=== PATIENT | male | born 1950 | race Caucasian/White ===

== ENCOUNTER 2017-07-09 01:52 | Inpatient (IN) | payer OTHER, MEDICARE ==
[~2017-07-09] VITALS: Ht 175.3 cm; Wt 86.8 kg
[~2017-07-09 01:52] MED LIST: ACETAMINOPHEN 325 MG TAB PO PRN; BISACODYL 10 MG SUPP RECTAL PRN; D200CAP PO; GEMF600T PO; LACTULOSE SYRUP 20 GM/30 ML CUP PO PRN; LISI10TA3 PO; MAGNESIUM HYDROXIDE SUSP 30 ML CUP PO PRN; METF500T PO; NALOXONE HCL 0.4 MG/ML AMP IV PUSH PRN; ONDANSETRON HCL 4 MG/2 ML VIAL IVP PRN; SENNOSIDES 8.6 MG TAB PO PRN; SODIUM CHLORIDE 0.9% FLUSH 10 ML FLUSH IV FLUSH PRN; TRAM50TA PO; VITA200C3 PO
[2017-07-09] MEDS ORDERED: GLUCAGON 1 MG/ML VIAL OTHER PRN (05:00)
[2017-07-09] MEDS ORDERED: DEXTROSE 50% IN WATER 50 ML VIAL(D50) IV PUSH PRN (05:00)
--- NOTE | 2017-07-09 05:05 | HHI.HP ---
HPI Service [facility] Primary Care Physician [facility] Admission Diagnosis Diagnoses: (1) Hematemesis/vomiting blood Diagnosis: Principal (2) Essential hypertension Diagnosis: Secondary Chief Complaint: " Throwing up blood." Travel History International Travel<30 Days: No Contact w/Intl Traveler <30 Da: No Traveled to Known Affected Are: No History of Present Illness Mr. Mckeon is 67 years old, with history of hypertension, diabetic neuropathy, of both feet, hepatitis C, and PTSD. Mr. Mckeon reported being well on Sunday (07/07/17). When he awoke on Sunday, he noted discomfort in his stomach. He said that he didn't feel like eating and had a small breakfast which she said was unusual for him. Over the course the day the discomfort continued and lately the day he went to lay down to rest. After proximally 45 minutes, he said he got up to urinate and while standing in front of the toilet he threw up bright red blood. Associated with his vomiting he felt lightheaded," warm on the upper portion of my body", developed a cold clammy sweat, and "I felt like he was going to pass out". It was at this time that he decided to go to [facility] [place] for evaluation of his condition. While there he said he had another episode of emesis with similar symptoms as above. Mr. Mckeon stated that he received medication for nausea (Zofran 4 mg) which" really helped". Review of records also indicates that he received 40 mg Protonix IV. He was subsequently transferred to [facility] for continued care. At time of interview, Mr. Mckeon denied black tarry stools, hematuria, cough, shortness of breath, and chest pain. He stated he has no prior history of hematemesis. Review of Systems Constitutional: COMPLAINS OF: Diaphoretic episodes, Change in appetite Endocrine: DENIES: Polyuria, Polyphagia Eyes: DENIES: Blurred vision, Double Vision Ears, nose, mouth, throat: COMPLAINS OF: Hearing loss (possibly related to his experience in an [employer] in the [employer]. He wears bilateral hearing aids.), DENIES: Hoarseness Respiratory: DENIES: Cough, Shortness of breath Cardiovascular: DENIES: Chest pain, Palpitations, Syncope Gastrointestinal: COMPLAINS OF: Abdominal pain, Nausea, Vomiting, DENIES: Black stools, Bloody stools, Diarrhea Psychiatric: DENIES: Anxiety Except as stated in HPI: all other systems reviewed are Neg Past Family Social History Past Medical History Diabetic neuropathy of both feet. Hypertension Hepatitis C (treated with Harvoni5 years ago) Post traumatic stress disorder Past Surgical History Right rotator cuff repair (4 years ago). No other surgeries reported. Reported Medications Reported Meds & Active Scripts Active Reported Vitamin E 200 Unit Cap 400 Units PO DAILY D3 Super Strength (Cholecalciferol) 2,000 Unit Cap 1,000 Units PO DAILY Tramadol (Tramadol HCl) 50 Mg Tab 50 Mg PO Q8H PRN Metformin (Metformin HCl) 500 Mg Tab 500 Mg PO BIDPC Lisinopril 10 Mg Tab 10 Mg PO DAILY Gemfibrozil 600 Mg Tab 600 Mg PO BIDAC Take 30 minutes prior to breakfast and dinner. Allergies: Coded Allergies: No Known Allergies (Verified Allergy, Severe, 07/08/17) Active Ordered Medications Current Medications Medications (Trade) Dose Ordered Sig/Kristopher Route Start Time Stop Time Status Last Admin (NS Flush) 2 ml UNSCH PRN IV FLUSH 07/09/17 00:30 (NS Flush) 2 ml BID IV FLUSH 07/09/17 09:00 (Tylenol) 650 mg Q4H PRN PO 07/09/17 00:30 (Zofran Inj) 4 mg Q4H PRN IVP 07/09/17 00:30 (Narcan Inj) 0.4 mg UNSCH PRN IV PUSH 07/09/17 00:30 (Aparna-Colace) 1 tab BID PO 07/09/17 09:00 (Milk Of Magnesia Liq) 30 ml Q12H PRN PO 07/09/17 00:30 (Senokot) 17.2 mg Q12H PRN PO 07/09/17 00:30 (Dulcolax Supp) 10 mg DAILY PRN RECTAL 07/09/17 00:30 (Lactulose Liq) 30 ml DAILY PRN PO 07/09/17 00:30 Family History Family history not disclose or reported at this visit. Social History Patient reported distant tobacco use (25-30 years ago). Patient reported distant alcohol use; nothing in the past 25-30 years. Patient denied illicit/recreational drug use. Patient is a [place] combat having served in the [employer] and states that he suspected he was exposed to agent orange. Patient is followed by [facility]. Physical Exam Physical Exam GENERAL: This is a well-nourished, well-developed male, laying in bed, in no apparent distress. SKIN: No rashes, ecchymoses or lesions. Cool and dry. IV noted to be and right forearm. HEAD: Atraumatic. Normocephalic. EYES: Pupils equal round and reactive. Extraocular motions intact. No scleral icterus. No injection or drainage. ENT: Nose without bleeding or purulent drainage. Airway patent. NECK: Trachea midline. No lymphadenopathy. Supple and nontender. CARDIOVASCULAR: Regular rate and rhythm without murmurs, gallops, or rubs. RESPIRATORY: Clear to auscultation. Breath sounds equal bilaterally. No wheezes , rales, or rhonchi. GASTROINTESTINAL: Abdomen soft, non-tender, nondistended. No hepato- splenomegaly or guarding. MUSCULOSKELETAL: Extremities without clubbing, cyanosis, or edema. NEUROLOGICAL: Awake and alert. Cranial nerves II through XII intact. Motor and sensory grossly within normal limits. Five out of 5 muscle strength in all muscle groups. Speech was clear and fluent. Laboratory Laboratory Tests Test 07/08/17 22:21 White Blood Count 14.4 TH/MM3 Red Blood Count 3.74 MIL/MM3 Hemoglobin 12.6 GM/DL Hematocrit 36.0 % Mean Corpuscular Volume 96.3 FL Mean Corpuscular Hemoglobin 33.7 PG Mean Corpuscular Hemoglobin Concent 35.0 % Red Cell Distribution Width 13.8 % Platelet Count 182 TH/MM3 Mean Platelet Volume 10.6 FL Immature Granulocyte % (Auto) 0.6 % Neutrophils (%) (Auto) 72.0 % Lymphocytes (%) (Auto) 16.2 % Monocytes (%) (Auto) 7.9 % Eosinophils (%) (Auto) 2.6 % Basophils (%) (Auto) 0.7 % Immature Granulocyte # (Auto) 0.1 TH/MM3 Neutrophils # (Auto) 10.4 TH/MM3 Lymphocytes # (Auto) 2.3 TH/MM3 Monocytes # (Auto) 1.1 TH/MM3 Eosinophils # (Auto) 0.4 TH/MM3 Basophils # (Auto) 0.1 TH/MM3 CBC Comment DIFF FINAL Differential Comment Prothrombin Time 13.2 SEC Prothromb Time International Ratio 1.3 RATIO Activated Partial Thromboplast Time 27.8 SEC Blood Urea Nitrogen 34 MG/DL Creatinine 0.70 MG/DL Random Glucose 146 MG/DL Total Protein 6.7 GM/DL Albumin 3.4 GM/DL Calcium Level 9.2 MG/DL Alkaline Phosphatase 113 U/L Aspartate Amino Transf (AST/SGOT) 12 U/L Alanine Aminotransferase (ALT/SGPT) 16 U/L Total Bilirubin 1.7 MG/DL Sodium Level 141 MEQ/L Potassium Level 4.4 MEQ/L Chloride Level 109 MEQ/L Carbon Dioxide Level 22.0 MEQ/L Anion Gap 10 MEQ/L Estimat Glomerular Filtration Rate 112 ML/MIN Lactic Acid Level 2.1 mmol/L Lipase 161 U/L Imaging CONCLUSION: 1. Suspected cirrhotic liver with portal hypertension, splenomegaly and extensive varices in the left upper quadrant and around the distal esophagus. 2. Colonic diverticula without inflammatory change. 3. Interstitial disease at the lung bases. 4. Questionable mild thickening of the posterior inferior urinary bladder. 5. Mild umbilical hernia containing mesenteric fat. Caprini VTE Risk Assessment Caprini VTE Risk Assessment: Mod/High Risk (score >= 2) VTE Pharm Contraindication: Active bleeding Caprini Risk Assessment Model Point Value = 1 Point Value = 2 Point Value = 3 Point Value = 5 Age 41-60 Minor surgery BMI > 25 kg/m2 Swollen legs Varicose veins or History of unexplained or recurrent spontaneous Oral contraceptives or hormone replacement Sepsis (< 1 month) Serious lung disease, including pneumonia (< 1 month) Abnormal pulmonary function Acute myocardial infarction Congestive heart failure (< 1 month) History of inflammatory bowel disease Medical patient at bed rest Age 61-74 Arthroscopic surgery Major open surgery (> 45 min) Laparoscopic surgery (> 45 min) Malignancy Confined to bed (> 72 hours) Immobilizing plaster cast Central venous access Age >= 75 History of VTE Family history of VTE Factor V Leiden Prothrombin [id number] Lupus anticoagulant Anticardiolipin antibodies Elevated serum homocysteine Heparin-induced thrombocytopenia Other congenital or acquired thrombophilia Stroke (< 1 month) Elective arthroplasty Hip, pelvis, or leg fracture Acute spinal cord injury (< 1 month) Prophylaxis Regimen Total Risk Factor Score Risk Level Prophylaxis Regimen 0-1 Low Early ambulation 2 Moderate Order ONE of the following: *Sequential Compression Device (SCD) *Heparin 5000 units SQ BID 3-4 Higher Order ONE of the following medications: *Heparin 5000 units SQ TID *Enoxaparin/Lovenox 40 mg SQ daily (WT < 150 kg, CrCl > 30 mL/min) *Enoxaparin/Lovenox 30 mg SQ daily (WT < 150 kg, CrCl > 10-29 mL/min) *Enoxaparin/Lovenox 30 mg SQ BID (WT < 150 kg, CrCl > 30 mL/min) AND/OR *Sequential Compression Device (SCD) 5 or more Highest Order ONE of the following medications: *Heparin 5000 units SQ TID (Preferred with Epidurals) *Enoxaparin/Lovenox 40 mg SQ daily (WT < 150 kg, CrCl > 30 mL/min) *Enoxaparin/Lovenox 30 mg SQ daily (WT < 150 kg, CrCl > 10-29 mL/min) *Enoxaparin/Lovenox 30 mg SQ BID (WT < 150 kg, CrCl > 30 mL/min) AND *Sequential Compression Device (SCD) Assessment and Plan Problem List: (1) Hematemesis/vomiting blood ICD Code: K92.0 - Hematemesis (2) Essential hypertension ICD Code: I10 - Essential (primary) hypertension (3) Diabetes mellitus with neuropathy ICD Code: E11.40 - Type 2 diabetes mellitus with diabetic neuropathy, unspecified Status: Chronic Assessment and Plan Mr. Mckeon is 67 years old, with history of hypertension, diabetic neuropathy, of both feet, hepatitis C, and PTSD. Mr. Mckeon reported being well on Sunday (07/07/17). When he awoke on Sunday, he noted discomfort in his stomach. He said that he didn't feel like eating and had a small breakfast which she said was unusual for him. Over the course the day the discomfort continued and lately the day he went to lay down to rest. After proximally 45 minutes, he said he got up to urinate and while standing in front of the toilet he threw up bright red blood. Associated with his vomiting he felt lightheaded, " warm on the upper portion of my body", developed a cold clammy sweat, and "I felt like he was going to pass out". It was at this time that he decided to go to [facility] [place] for evaluation of his condition. While there he said he had another episode of emesis with similar symptoms as above. Mr. Mckeon stated that he received medication for nausea (Zofran 4 mg) which" really helped ". Review of records also indicates that he received 40 mg Protonix IV. Hematemesis/vomiting blood -Consult GI appreciate recommendations. -Protonix 40 mg IV every 12 hours -Nothing by mouth at present except for medications -Labs in a.m. Diabetes -Hold home metformin -Fingersticks every before meals and at bedtime -Sliding scale insulin (NovoLog low-dose regimen). Hypertension -Lisinopril 10 mg daily DVT prophylaxis -Pharmacotherapy not warranted at this time due to active bleeding. -Ambulation of patient. Diet -Nothing by mouth upon admission. Code Status Full code Discussed Condition With Patient, RN,Dr. Salvador Problem Qualifiers (1) Hematemesis/vomiting blood: Qualified Codes: K92.0 - Hematemesis (2) Diabetes mellitus with neuropathy: Qualified Codes: E11.40 - Type 2 diabetes mellitus with diabetic neuropathy, unspecified Yomi López Jr. Jul 09, 2017 05:05
[2017-07-09 05:10] VITALS: BP 128/58; PULSE 88; RESP 18; TEMP 98.8; O2SAT 94
[2017-07-09 08:02] VITALS: BP 135/74; PULSE 95; RESP 16; TEMP 96.7; O2SAT 93
[2017-07-09] MEDS: INSULIN ASPART SUPPLEMENTAL SCALE SQ SCH ×4 (08:11→21:56)
[2017-07-09] MEDS: LISINOPRIL 10 MG TAB PO SCH (08:12)
[2017-07-09] MEDS: DOCUSATE SODIUM 50 MG/SENNA 8.6 MG TAB PO SCH ×2 (08:13→21:00)
[2017-07-09] MEDS: SODIUM CHLORIDE 0.9% FLUSH 10 ML FLUSH IV FLUSH SCH ×2 (08:13→21:00)
--- NOTE | 2017-07-09 09:40 | HHI.PR ---
Subjective Remarks Follow up for hematemesis. The patient reports feeling slightly better today. No further episodes of nausea/vomiting/hematemesis since he was in [facility]. He states his abdominal pain has subsided, previously with periumbilical discomfort. He had a BM yesterday morning and this morning, described as "blackish brown", which is darker than usual for him. He denies any alcohol use or recent NSAID use. He states he had an EGD a few years ago with Dr. Gomez that was reportedly unremarkable. He also reports feeling lightheaded and flushed upon ambulating and with the bowel movement this morning. He has no other medical complaints at this time. Objective Vitals Vital Signs Date Time Temp Pulse Resp B/P (MAP) Pulse Ox O2 Delivery O2 Flow Rate FiO2 07/09/17 08:02 96.7 95 16 135/74 (94) 93 07/09/17 05:10 98.8 88 18 128/58 (81) 94 Objective Remarks GENERAL: Well-nourished, well-developed pleasant male patient in [facility]. SKIN: Warm and dry. No rash. HEENT: Normocephalic. Atraumatic.Pupils equal and round. Mucous membranes pink and moist. NECK: Supple. Trachea midline. CARDIOVASCULAR: Regular rate and rhythm. S1, S2 noted. No murmur appreciated. RESPIRATORY: No accessory muscle use. Clear to auscultation. Breath sounds equal bilaterally. GASTROINTESTINAL: Abdomen soft, non-tender, nondistended. Normoactive bowel sounds x4. MUSCULOSKELETAL: No obvious deformities. Extremities without clubbing, cyanosis , or edema. NEUROLOGICAL: Awake and alert. No obvious cranial nerve deficits. Motor grossly within normal limits. Normal speech. PSYCHIATRIC: Appropriate mood and affect; insight and judgment normal. Medications and IVs Current Medications Medications (Trade) Dose Ordered Sig/Kristopher Route Start Time Stop Time Status Last Admin (NS Flush) 2 ml UNSCH PRN IV FLUSH 07/09/17 00:30 (NS Flush) 2 ml BID IV FLUSH 07/09/17 09:00 07/09/17 08:13 (Tylenol) 650 mg Q4H PRN PO 07/09/17 00:30 (Zofran Inj) 4 mg Q4H PRN IVP 07/09/17 00:30 (Narcan Inj) 0.4 mg UNSCH PRN IV PUSH 07/09/17 00:30 (Aparna-Colace) 1 tab BID PO 07/09/17 09:00 07/09/17 08:13 (Milk Of Magnesia Liq) 30 ml Q12H PRN PO 07/09/17 00:30 (Senokot) 17.2 mg Q12H PRN PO 07/09/17 00:30 (Dulcolax Supp) 10 mg DAILY PRN RECTAL 07/09/17 00:30 (Lactulose Liq) 30 ml DAILY PRN PO 07/09/17 00:30 (Prinivil) 10 mg DAILY PO 07/09/17 09:00 07/09/17 08:12 (Ultram) 50 mg Q8H PRN PO 07/09/17 05:00 (NovoLOG SUPPLEMENTAL SCALE) 1 ACHS SLIDING SCALE SQ 07/09/17 08:00 (D50w (Vial) Inj) 50 ml UNSCH PRN IV PUSH 07/09/17 05:00 (Glucagon Inj) 1 mg UNSCH PRN OTHER 07/09/17 05:00 A/P Problem List: (1) Hematemesis/vomiting blood ICD Code: K92.0 - Hematemesis (2) Essential hypertension ICD Code: I10 - Essential (primary) hypertension (3) Diabetes mellitus with neuropathy ICD Code: E11.40 - Type 2 diabetes mellitus with diabetic neuropathy, unspecified Status: Chronic Assessment and Plan 67-year-old male with history of HTN, DM, diabetic neuropathy, hepatitis C, PTSD , presents with abdominal pain, hematemesis x1day. Transferred from [facility] ER Hematemesis/Abdominal Pain: upper GI bleeding, suspect variceal bleeding. CT abd /pelvis images reviewed, shows suspected cirrhotic liver with portal hypertension, splenomegaly, extensive varices LUQ and distal esophagus; colonic diverticula without inflammatory changes; mild umbilical hernia containing mesenteric fat -Hgb 12.6, stable, continue to monitor H&H -Continue IV Protonix 40mg bid -Start on prophylactic antibiotics with IV Rocephin -Continue IVF -Keep NPO for now -Consult GI, appreciate recommendations. Diabetes Mellitus -Hold home metformin -Monitor Accu-cheks and cover with SSI Hypertension -Continue patient's Lisinopril 10 mg daily -Monitor BP, adjust antihypertensives as needed DVT prophylaxis: teds/SCDs. Avoid chemoprophylaxis secondary to GI bleeding. Problem Qualifiers (1) Hematemesis/vomiting blood: Qualified Codes: K92.0 - Hematemesis (2) Diabetes mellitus with neuropathy: Qualified Codes: E11.40 - Type 2 diabetes mellitus with diabetic neuropathy, unspecified Leonor Stewart PA-C Jul 09, 2017 9:40 am
[2017-07-09 10:48] LABS: HEMATOCRIT 31.6 % (39.0-51.0)
[2017-07-09 10:49] LABS: REVIEW FLAG FINAL
[2017-07-09] MEDS: SODIUM CHLOR 0.9% 1000 ML INJ 1,000 ML IV SCH (10:53)
[2017-07-09] MEDS: PANTOPRAZOLE SODIUM 40 MG VIAL IV PUSH SCH ×2 (10:54→21:56)
[2017-07-09] MEDS: cefTRIAXone INJ 1,000 MG in SODIUM CHLORIDE 0.9% INJ 100 ML IV SCH (11:01)
--- NOTE | 2017-07-09 11:48 | PD.CONS ---
HPI History of Present Illness This is a 67 year old male who presented to the emergency room for evaluation of hematemesis. He has a history of liver cirrhosis "stage 2" and hepatitis C ( first treated unsuccessfully with Interferon/Ribavirin and then successfully with Harvoni about 5 years ago). He reports that around 5pm yesterday, he started having some nausea. He only took a few bites of his dinner and then went to bed to see if he would feel better. He then woke up around 8pm and vomited a small amount of red blood and clots. He had three episodes of this, with the last episode in the ER last night at the [facility]. He denies any prior episodes of upper GI bleeding. He denies any history of stomach ulcers. He denies the use any current alcohol use (quit drinking about 25-30 years ago). He does not use any NSAIDs or blood thinners. He has occasional mid abdominal cramping that radiates to his LUQ. He denies any diarrhea. He started having melena yesterday when the nausea/vomiting started. He denies any heartburn or reflux. 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 Although nonspecific this may represent a lymph node. This has been stable since the June 2015 exam. He was then Endoscopic Ultrasound (09/23/15) for abnormal US ----> unremarkable EUS. He has a hx of elevated AFP, but he last one in August of 2015 3.6. Colonoscopy (07/22/15)----> Pandiverticulosis, retroflexed views revealed medium internal hemorrhoids, rectal exam revealed external hemorrhoids. EGD (06/27)---> Nodular gastritis with superficial ulcerations in antrum biopsy, short segment Pruitt's NBI scope used- no dysplasia, biopsy no esophageal varices noted, retroflexed views revealed a small hiatal hernia. Pathology revealed mild chronic gastritis with focal erosion, negative for Helicobacter pylori organisms, distal esophagus with benign squamous mucosa with features of reflux esophagitis. (Odilia Borgse) PFSH Past Medical History Diabetic neuropathy of both feet. 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 EGD/Colonoscopy (Odilia Borges) Coded Allergies: No Known Allergies (Verified Allergy, Severe, 07/08/17) Medications Allergies Coded Allergies Type Severity Reaction Last Updated Verified No Known Allergies Allergy Severe 07/08/17 Yes Active Scripts Medications Dose Route/Sig Max Daily Dose Days Date Category Dose Instructions Vitamin E 200 Unit Cap 400 Units PO DAILY 07/08/17 Reported D3 Super Strength (Cholecalciferol) 2,000 Unit Cap 1,000 Units PO DAILY 07/08/17 Reported Tramadol (Tramadol HCl) 50 Mg Tab 50 Mg PO Q8H PRN 07/08/17 Reported Metformin (Metformin HCl) 500 Mg Tab 500 Mg PO BIDPC 07/08/17 Reported Lisinopril 10 Mg Tab 10 Mg PO DAILY 07/08/17 Reported Gemfibrozil 600 Mg Tab 600 Mg PO BIDAC 07/08/17 Reported Take 30 minutes prior to breakfast and dinner. Family History He denies any family hx of liver disease or cancer. He does not know his mother's medical history Social History Past tobacco use ~25-30 years ago Past ETOH abuse ~25-30 years. Patient denied illicit/recreational drug use. (Odilia Borges) Review of Systems Constitutional: COMPLAINS OF: Fatigue, DENIES: Weight loss Respiratory: DENIES: Cough Gastrointestinal: COMPLAINS OF: Nausea, Vomiting, Heartburn, DENIES: Abdominal pain, Black stools, Bloody stools, Constipation, Diarrhea Hematologic/lymphatic: COMPLAINS OF: Bruising Neurologic: DENIES: Headache Psychiatric: DENIES: Confusion (Odilia Borges) GI Exam Vitals I&O Vital Signs Date Time Temp Pulse Resp B/P (MAP) Pulse Ox O2 Delivery O2 Flow Rate FiO2 07/09/17 08:02 96.7 95 16 135/74 (94) 93 07/09/17 05:10 98.8 88 18 128/58 (81) 94 Imaging Allergies Coded Allergies Type Severity Reaction Last Updated Verified No Known Allergies Allergy Severe 07/08/17 Yes Active Scripts Medications Dose Route/Sig Max Daily Dose Days Date Category Dose Instructions Vitamin E 200 Unit Cap 400 Units PO DAILY 07/08/17 Reported D3 Super Strength (Cholecalciferol) 2,000 Unit Cap 1,000 Units PO DAILY 07/08/17 Reported Tramadol (Tramadol HCl) 50 Mg Tab 50 Mg PO Q8H PRN 07/08/17 Reported Metformin (Metformin HCl) 500 Mg Tab 500 Mg PO BIDPC 07/08/17 Reported Lisinopril 10 Mg Tab 10 Mg PO DAILY 07/08/17 Reported Gemfibrozil 600 Mg Tab 600 Mg PO BIDAC 07/08/17 Reported Take 30 minutes prior to breakfast and dinner. Laboratory Test 07/09/17 10:21 Hemoglobin 11.6 GM/DL Hematocrit 31.6 % Physical Examination HEENT: Normocephalic; atraumatic; no jaundice. CHEST: Resp. even/unlabored. CARDIAC: RRR ABDOMEN: Soft, mild LUQ tenderness; no hepatosplenomegaly; bowel sounds are present in all four quadrants. EXTREMITIES: No clubbing, cyanosis, or edema. SKIN: Normal; no rash; no jaundice. SEAT MAKER: No focal deficits; alert and oriented times three. (Odilia Borges) Assessment and Plan Plan ASSESSMENT: - Hematemesis. Pt with hx of liver cirrhosis. No hx of PUD or Upper GIB. Sudden onset of hematemesis with 3 episodes of hematemesis with small amount red blood with blood clots and melena since yesterday. Last episode of hematemesis was last night. HH has remained stable, 12.6/36.0----> 11.6/31.6. Last EGD was (10/21/14)---> Nodular gastritis with superficial ulcerations in antrum biopsy, short segment Pruitt's NBI scope used- no dysplasia, biopsy no esophageal varices noted, retroflexed views revealed a small hiatal hernia. Pathology revealed mild chronic gastritis with focal erosion, negative for Helicobacter pylori organisms, distal esophagus with benign squamous mucosa with features of reflux esophagitis. - Anemia. Mild. EGD in 2014 as above. Had colonoscopy (07/22/15)----> Pandiverticulosis, retroflexed views revealed medium internal hemorrhoids, rectal exam revealed external hemorrhoids. - Liver cirrhosis, mildly elevated LFTs. Remote hx of ETOH use. Hx hepatitis C , s/p tx (unsuccessfully with interferon/ribavirin and then successfully with Harvoni). LFTs stable. - Hx abnormal US with coarsened echotexture with nodularity along the capsule and stable 2.5 cm mass in the region of the raoul hepatis. S/P EUS (09/23/15) ----> unremarkable EUS. Has had elevated AFP at time, but last checked in August of 2015 and this was 3.6. - Abn. U/A, DM, PTSD, HTN, per attending. PLAN: - Plan for EGD with possible band ligation tomorrow - Obtain consents - NPO after MN - Protonix 40mg IV BID - Monitor HH - Transfuse as necessary - AFP level - CBC, CMP, INR in am - Supportive care - Further recommendations to follow based on results of above - Pt seen and examined by Dr. Gomez and myself and this note is written on her behalf (Odilia Borges) Physician Comments seen, examined agree with above (Danielle Gomez MD) Odilia Borges Jul 09, 2017 11:48 Danielle Gomez MD Jul 09, 2017 18:01
[2017-07-09 12:38] VITALS: BP 134/65; PULSE 84; RESP 18; TEMP 96.1; O2SAT 96
[2017-07-09 15:16] VITALS: BP 119/63; PULSE 96; RESP 20; TEMP 95.8; O2SAT 97
[2017-07-09 17:35] LABS: HEMATOCRIT 28.7 % (39.0-51.0); REVIEW FLAG FINAL
[2017-07-09 20:13] VITALS: BP 116/57; PULSE 110; RESP 18; O2SAT 94
[2017-07-09 22:01] LABS: REVIEW FLAG FINAL
[2017-07-10] VITALS (9 sets, daily range): BP systolic 100–133; BP diastolic 51–68; PULSE 91–116; RESP 16–20; TEMP 98–99.2; O2SAT 94–98
[2017-07-10] MEDS ORDERED: CHLORHEXIDINE GLUCONATE 2 % 1 PACK (2 CLOTHS) TOPICAL PRN (01:15)
[2017-07-10] MEDS ORDERED: METOPROLOL TARTRATE 25 MG TAB PO PRN (01:15)
[2017-07-10] MEDS ORDERED: POVIDONE IODINE 5% (ANTISEPSIS KIT) 4 APPLICATIONS EACH NARE PRN (01:15)
[2017-07-10] MEDS ORDERED: LACTATED RINGER'S 1000 ML IV PRN (01:15)
[2017-07-10] MEDS ORDERED: SODIUM CHLORID 0.9% 500 ML IV PRN (01:15)
[2017-07-10] MEDS ORDERED: INSULIN HUMAN REGULAR 1,000 UNITS/10 ML VIAL SQ PRN (01:15)
[2017-07-10 04:22] LABS: AUTOMATED NEUTROPHIL # 14.8 TH/MM3 (1.8-7.7); BASOPHIL # 0.2 TH/MM3 (0-0.2); EOSINOPHIL # 0.3 TH/MM3 (0-0.4); EOSINOPHIL % 1.7 % (0.0-4.0); HEMATOCRIT 25.2 % (39.0-51.0); HEMO FLAGS DIFF FINAL; LYMPH % 12.7 % (9.0-44.0); LYMPHOCYTE # 2.4 TH/MM3 (1.0-4.8); MEAN CELL VOLUME 96.4 FL (80.0-100.0); MEAN CORPUSCULAR HEMOGLOBIN 33.3 PG (27.0-34.0); MEAN CORPUSCULAR HGB CONC 34.5 % (32.0-36.0); MONO % 7.3 % (0.0-8.0); NEUT % 77.3 % (16.0-70.0); PLATELET COUNT 225 TH/MM3 (150-450); RED BLOOD COUNT 2.61 MIL/MM3 (4.50-5.90); RED CELL DISTRIBUTION WIDTH 13.9 % (11.6-17.2); WHITE BLOOD COUNT 19.1 TH/MM3 (4.0-11.0)
[2017-07-10 04:55] LABS: ALT (GPT) 14 U/L (12-78); ANION GAP 9 MEQ/L (5-15); AST (GOT) 8 U/L (15-37); BICARBONATE 23.2 MEQ/L (21.0-32.0); BLOOD UREA NITROGEN 43 MG/DL (7-18); CHLORIDE 109 MEQ/L (98-107); GLOMERULAR FILTRATION RATE 124 ML/MIN (>89); SODIUM (NA) 141 MEQ/L (136-145)
[2017-07-10 04:56] LABS: ALKALINE PHOSPHATASE 87 U/L (45-117)
[2017-07-10] MEDS: SODIUM CHLOR 0.9% 1000 ML INJ 1,000 ML IV SCH ×2 (07:51→16:00)
[2017-07-10] MEDS: INSULIN ASPART SUPPLEMENTAL SCALE SQ SCH ×4 (08:00→21:00)
[2017-07-10] MEDS: SODIUM CHLORIDE 0.9% FLUSH 10 ML FLUSH IV FLUSH SCH ×2 (09:00→20:16)
[2017-07-10] MEDS: DOCUSATE SODIUM 50 MG/SENNA 8.6 MG TAB PO SCH ×2 (09:00→20:15)
--- NOTE | 2017-07-10 10:00 | GIPROC ---
[facility] [address] [facility]. [facility], [address] EGD PROCEDURE REPORT EXAM DATE: 07/10/2017 PATIENT NAME: Marco Mckeon MR #: [id number] BIRTHDATE: 1950 ATTENDING: Danielle Gomez MD ORDER #: [id number] MECHATRONICS TECHNOLOGIST: Robert Willoughby and Danay Lucas STATUS: inpatient INDICATIONS: The patient is a 67 yr old male here for an EGD due to gi bleeding, liver cirrhosis PROCEDURE PERFORMED: EGD w/ biopsy MEDICATIONS: None and Per Anesthesia. TOPICAL ANESTHETIC: none CONSENT: The patient understands the risks and benefits of the procedure and understands that these risks include, but are not limited to: sedation, allergic reaction, infection, perforation and/or bleeding. Alternative means of evaluation and treatment include, among others: physical exam, x-rays, and/or surgical intervention. The patient elects to proceed with this endoscopic procedure. medical equipment was checked for proper function. Hand hygiene and appropriate measures for infection prevention was taken. After the risks, benefits and alternatives of the procedure were thoroughly explained, Informed consent was verified, confirmed and timeout was successfully executed by the treatment team. The patient was anesthetized with topical anesthesia and the Pentax [id number] endoscope was introduced through the mouth and advanced to the second portion of the duodenum. Retroflexed views revealed gastric varices The gastroscope was then slowly withdrawn and removed. Portal gastropathy old blood in stomach no esophagela varices gastric varices with some old blood over ti-most likely cause of bleeding. ADVERSE EVENTS: There were no complications. IMPRESSIONS: 1. Portal gastropathy old blood in stomach no esophagela varices gastric varices with some old blood over ti-most likely cause of bleeding 2. Retroflexed views revealed gastric varices RECOMMENDATIONS: 1. Await biopsy results. Biopsy results will not be ready for 7-10 days. If you don't hear from us in two weeks, call our office for biopsy results. 2. Anti-reflux regimen 3. Resume diet consult IR for possible TIPS referral tertiary center op hepatology clinic start Nadolol upon dc MRV abdomen to r/o splenic vein thrombosis continue monitoring hb /ht EUS op PATIENT CONDITION: stable DISPOSITION: Inpatient REPEAT EXAM: Return 3 months EGD Danielle Gomez MD eSigned: Danielle Gomez MD 07/10/2017 10:00 AM cc: PATIENT NAME: Marco Mckeon MR#: [id number]
[2017-07-10] MEDS: LISINOPRIL 10 MG TAB PO SCH (11:33)
[2017-07-10] MEDS: PANTOPRAZOLE SODIUM 40 MG VIAL IV PUSH SCH ×2 (11:34→20:15)
[2017-07-10] MEDS: cefTRIAXone INJ 1,000 MG in SODIUM CHLORIDE 0.9% INJ 100 ML IV SCH (11:41)
--- NOTE | 2017-07-10 11:47 | HHI.PR ---
Subjective Remarks Follow up for hematemesis. The patient is seen s/p EGD, he is drowsy but oriented x4, is at bedside. The patient reports large episode of black melanotic stool overnight. Denies any nausea/vomiting/hematemesis. Denies any specific abdominal pains but does report abdominal fullness. Denies fevers/ chills. Patient and would like to speak with Dr. Gomez again today if possible. Objective Vitals Vital Signs Date Time Temp Pulse Resp B/P (MAP) Pulse Ox O2 Delivery O2 Flow Rate FiO2 07/10/17 10:39 101 18 135/69 (91) 98 07/10/17 10:21 107 18 120/63 (82) 98 07/10/17 10:14 100 20 112/86 (95) 97 07/10/17 10:02 97.1 95 18 122/61 (81) 95 07/10/17 09:56 97.0 96 16 118/86 (97) 95 07/10/17 08:08 98.9 109 20 125/60 (81) 97 07/10/17 05:18 98.0 116 18 122/65 (84) 95 07/10/17 00:14 98.4 110 18 133/68 (89) 96 07/09/17 20:13 110 18 116/57 (76) 94 07/09/17 15:16 95.8 96 20 119/63 (81) 97 07/09/17 12:38 96.1 84 18 134/65 (88) 96 I/O 07/09/17 07/09/17 07/09/17 07/10/17 07/10/17 07/10/17 07:00 15:00 23:00 07:00 15:00 23:00 Intake Total 400 ml Balance 400 ml Intake Other 400 ml # Voids 3 # Bowel Movements 2 Result Diagram: 07/10/17 04007/10/171 Objective Remarks GENERAL: Well-nourished, well-developed pleasant male patient in [facility]. SKIN: Warm and dry. No rash. HEENT: Normocephalic. Atraumatic.Pupils equal and round. Mucous membranes pink and moist. NECK: Supple. Trachea midline. CARDIOVASCULAR: Regular rate and rhythm. S1, S2 noted. No murmur appreciated. RESPIRATORY: No accessory muscle use. Clear to auscultation. Breath sounds equal bilaterally. GASTROINTESTINAL: Abdomen soft, non-tender, nondistended. Normoactive bowel sounds x4. MUSCULOSKELETAL: No obvious deformities. Extremities without clubbing, cyanosis , or edema. NEUROLOGICAL: Awake and alert. No obvious cranial nerve deficits. Motor grossly within normal limits. Normal speech. PSYCHIATRIC: Appropriate mood and affect; insight and judgment normal. Medications and IVs Current Medications Medications (Trade) Dose Ordered Sig/Kristopher Route Start Time Stop Time Status Last Admin (NS Flush) 2 ml UNSCH PRN IV FLUSH 07/09/17 00:30 (NS Flush) 2 ml BID IV FLUSH 07/09/17 09:00 07/09/17 08:13 (Tylenol) 650 mg Q4H PRN PO 07/09/17 00:30 (Zofran Inj) 4 mg Q4H PRN IVP 07/09/17 00:30 (Narcan Inj) 0.4 mg UNSCH PRN IV PUSH 07/09/17 00:30 (Aparna-Colace) 1 tab BID PO 07/09/17 09:00 07/09/17 08:13 (Milk Of Magnesia Liq) 30 ml Q12H PRN PO 07/09/17 00:30 (Senokot) 17.2 mg Q12H PRN PO 07/09/17 00:30 (Dulcolax Supp) 10 mg DAILY PRN RECTAL 07/09/17 00:30 (Lactulose Liq) 30 ml DAILY PRN PO 07/09/17 00:30 (Prinivil) 10 mg DAILY PO 07/09/17 09:00 07/09/17 08:12 (Ultram) 50 mg Q8H PRN PO 07/09/17 05:00 (NovoLOG SUPPLEMENTAL SCALE) 1 ACHS SLIDING SCALE SQ 07/09/17 08:00 07/09/17 21:56 (D50w (Vial) Inj) 50 ml UNSCH PRN IV PUSH 07/09/17 05:00 (Glucagon Inj) 1 mg UNSCH PRN OTHER 07/09/17 05:00 (Protonix Inj) 40 mg Q12HR IV PUSH 07/09/17 10:30 07/09/17 21:56 Sodium Chloride 1,000 ml @ 100 mls/hr Q10H IV 07/09/17 10:00 07/10/17 07:51 Ceftriaxone Sodium 1000 mg/ Sodium Chloride 100 ml @ 200 mls/hr Q24H IV 07/09/17 11:00 07/09/17 11:01 Lactated Ringer's 1,000 ml @ 30 mls/hr Q24H PRN IV 07/10/17 01:15 12 01:14 07/10/17 08:28 Sodium Chloride 500 ml @ 30 mls/hr [id number] PRN IV 07/10/17 01:15 07/13/17 01:14 (Lopressor) 25 mg CHIEF ORDER DISPATCHER PRN PO 07/10/17 01:15 07/13/17 01:14 (Betadine 5% Antisepsis Kit) 1 applic CHIEF ORDER DISPATCHER PRN EACH NARE 07/10/17 01:15 07/13/17 01:14 (Chlorhexidine 2% Cloth) 3 pack CHIEF ORDER DISPATCHER PRN TOPICAL 07/10/17 01:15 07/13/17 01:14 (NovoLIN R INJ) See Protocol Table ... CHIEF ORDER DISPATCHER PRN SQ 07/10/17 01:15 07/13/17 01:14 A/P Problem List: (1) Hematemesis/vomiting blood ICD Code: K92.0 - Hematemesis (2) Essential hypertension ICD Code: I10 - Essential (primary) hypertension (3) Diabetes mellitus with neuropathy ICD Code: E11.40 - Type 2 diabetes mellitus with diabetic neuropathy, unspecified Status: Chronic Assessment and Plan 67-year-old male with history of HTN, DM, diabetic neuropathy, hepatitis C, PTSD , presents with abdominal pain, hematemesis x1day. Transferred from [facility] ER Hematemesis/Abdominal Pain: upper GI bleeding, suspect variceal bleeding. CT abd /pelvis images reviewed, shows suspected cirrhotic liver with portal hypertension, splenomegaly, extensive varices LUQ and distal esophagus; colonic diverticula without inflammatory changes; mild umbilical hernia containing mesenteric fat -Hgb continues to drop 12.6 --> 11.6 --> 10.3 --> 10.0 --> 8.7, continue to monitor serial H&H q6h -Continue IV Protonix 40mg bid -Continue on prophylactic antibiotics with IV Rocephin -Continue IVF -diet per gastroenterology -Consult GI, appreciate recommendations. -S/p EGD 07/[address] Gomez, showed Portal gastropathy, old blood in stomach , no esophageal varices, gastric varices with some old blood over ti-most likely cause of bleeding -MRV ordered to eval for splenic vein thrombosis -IR consulted to eval for possible TIPS -per GI, needs referral to tertiary center/hepatology clinic -GI also recommends starting Nadolol upon discharge Symptomatic Anemia: Hgb continues to drop, currently Hgb 8.7, decreased from 12.6. Patient now lightheaded. -secondary to GI bleeding as above -continue to monitor H&H, transfuse if Hgb < 8.0 Diabetes Mellitus -Hold home metformin -Monitor Accu-cheks and cover with SSI Hypertension -Continue patient's Lisinopril 10 mg daily -Monitor BP, adjust antihypertensives as needed DVT prophylaxis: teds/SCDs. Avoid chemoprophylaxis secondary to GI bleeding/ Anemia. Problem Qualifiers (1) Hematemesis/vomiting blood: Qualified Codes: K92.0 - Hematemesis (2) Diabetes mellitus with neuropathy: Qualified Codes: E11.40 - Type 2 diabetes mellitus with diabetic neuropathy, unspecified Leonor Stewart PA-C Jul 10, 2017 11:47 am
[2017-07-10] MEDS ORDERED: PROPOFOL 200 MG/20 ML AMP IV ONE (12:00)
[2017-07-10] MEDS ORDERED: LIDOCAINE HCL 1% PF 5 ML SYRINGE OTHER ONE (12:00)
[2017-07-10 12:59] LABS: HEMATOCRIT 23.4 % (39.0-51.0); REVIEW FLAG FINAL
--- NOTE | 2017-07-10 14:45 | RADRPT ---
EXAM DATE/TIME: 07/10/2017 13:24 [facility] COMPARISON: CT ABDOMEN & PELVIS W CONTRAST, July 08, 2017, 23:09. INDICATIONS : Thrombosis. CONTRAST: 30 cc Omniscan (gadodiamide) IV MEDICAL HISTORY : Diabetes mellitus type 2. SURGICAL HISTORY : Cholecystectomy. Rotator cuff, ENCOUNTER: Initial ACUITY: 3 day PAIN SCORE: 3/10 LOCATION: abdomen. TECHNIQUE: Multiplanar, multisequence MRV examination of the abdomen was performed. FINDINGS: The superior mesenteric vein, splenic vein and portal vein are all patent. Within the hepatic parench yma, the portal vein branches are relatively small. The splenic vein is patent throughout. There are massive left gastric varices clustering into the fundus of the stomach and a large caliber spontaneou s spleno renal shunt is present. The spleen is mildly enlarged without focal mass. The liver is mildly cirrhotic in appearance without focal mass or ductal dilatation. The kidneys are grossly unremarkable. CONCLUSION: Splenic vein is patent throughout. There are massive left gastric varices clustering around the fundu s of the stomach and a spontaneous splenorenal shunt is present. Dimas Osorio MD on July 10, 2017 at 14:35 Board Certified Radiologist. This report was verified electronically.
--- NOTE | 2017-07-10 15:10 | EKG ---
Date Performed: 07/10/2017 Time Performed: 08:27:18 PTAGE: 67 years EKG: SINUS TACHYCARDIA NONSPECIFIC ST & T-WAVE ABNORMALITY ABNORMAL RHYTHM ECG NO PREVIOUS TRACING DOCTOR: Mali Bach Interpretating Date/Time 07/10/2017 15:10:03
[2017-07-10] MEDS ORDERED: GADODIAMIDE PF 287 MG/ML 10 ML VIAL (for RAD MRI) IV PUSH ONE (15:21)
[2017-07-10 18:38] LABS: HEMATOCRIT 21.3 % (39.0-51.0)
[2017-07-10 18:41] LABS: REVIEW FLAG FINAL
[2017-07-10] MEDS: traMADol HCL 50 MG TAB PO PRN (20:16)
[2017-07-11 02:32] VITALS: BP 118/65; PULSE 85; RESP 16; TEMP 98; O2SAT 94
[2017-07-11 02:51] VITALS: BP 113/62; PULSE 83; RESP 16; TEMP 98.8; O2SAT 96
[2017-07-11 03:47] VITALS: BP 112/54; PULSE 87; RESP 18; TEMP 99.1; O2SAT 94
[2017-07-11] MEDS: SODIUM CHLOR 0.9% 1000 ML INJ 1,000 ML IV SCH ×3 (06:42→20:27)
[2017-07-11 07:52] VITALS: BP 110/54; PULSE 82; RESP 18; TEMP 99; O2SAT 96
[2017-07-11] MEDS: INSULIN ASPART SUPPLEMENTAL SCALE SQ SCH ×4 (08:00→20:27)
[2017-07-11 08:12] LABS: AUTOMATED NEUTROPHIL # 4.8 TH/MM3 (1.8-7.7); BASOPHIL # 0.1 TH/MM3 (0-0.2); BASOPHIL % 0.9 % (0.0-2.0); EOSINOPHIL # 0.3 TH/MM3 (0-0.4); EOSINOPHIL % 3.7 % (0.0-4.0); HEMATOCRIT 23.8 % (39.0-51.0); LYMPH % 20.5 % (9.0-44.0); LYMPHOCYTE # 1.4 TH/MM3 (1.0-4.8); MEAN CELL VOLUME 91.9 FL (80.0-100.0); MEAN CORPUSCULAR HEMOGLOBIN 32.7 PG (27.0-34.0); MEAN CORPUSCULAR HGB CONC 35.6 % (32.0-36.0); MONO % 7.1 % (0.0-8.0); NEUT % 67.8 % (16.0-70.0); PLATELET COUNT 92 TH/MM3 (150-450); RED BLOOD COUNT 2.59 MIL/MM3 (4.50-5.90); RED CELL DISTRIBUTION WIDTH 16.8 % (11.6-17.2); WHITE BLOOD COUNT 7.1 TH/MM3 (4.0-11.0)
[2017-07-11 08:23] LABS: APTT (PATIENT) 26.1 SEC (24.3-30.1); INTERNATIONAL NORMALIZED RATIO 1.2 RATIO; PROTHROMBIN TIME - PATIENT 12.9 SEC (9.8-11.6)
--- NOTE | 2017-07-11 08:33 | HHI.PR ---
Subjective Remarks Follow up on patient with hematemesis. Patient seen and examined. Patient reports feeling better after receiving 2units PRBCs. He denies any complaints at this time. Denies any dizziness or lightheadedness. Denies any fever or chills. Denies any nausea, vomiting or abdominal pain. Denies any chest pain or dyspnea. He is asking when is procedure will be today. Discussed with Amena VARGAS, no acute issues, TIPS procedure scheduled around 1 today. NPO for now. Objective Vitals Vital Signs Date Time Temp Pulse Resp B/P (MAP) Pulse Ox O2 Delivery O2 Flow Rate FiO2 07/11/17 07:52 99.0 82 18 110/54 (72) 96 07/11/17 03:47 99.1 87 18 112/54 (73) 94 07/11/17 02:51 98.8 83 16 113/62 96 07/11/17 02:32 98.0 85 16 118/65 94 07/10/17 23:54 99.1 94 18 100/51 (67) 95 07/10/17 23:37 99.2 91 16 105/58 95 07/10/17 23:11 99.2 91 18 109/63 94 07/10/17 20:38 99.0 97 20 108/56 (73) 98 07/10/17 16:51 98.2 102 20 117/55 (75) 97 07/10/17 12:05 98.0 105 20 112/56 (74) 98 07/10/17 10:39 101 18 135/69 (91) 98 07/10/17 10:21 107 18 120/63 (82) 98 07/10/17 10:14 100 20 112/86 (95) 97 07/10/17 10:02 97.1 95 18 122/61 (81) 95 07/10/17 09:56 97.0 96 16 118/86 (97) 95 I/O 07/10/17 07/10/17 07/10/17 07/11/17 07/11/17 07/11/17 06:59 14:59 22:59 06:59 14:59 22:59 Intake Total 400 ml 950 ml Balance 400 ml 950 ml Intake Oral 150 ml Packed Cells 800 ml Other 400 ml # Voids 2 Result Diagram: 07/10/17 1800 07/10/17 0401 Imaging Last Impressions Abdominal Mag Res Venography 07/10/17 0000 Signed Impressions: Service Date/Time: Monday, July 10, 2017 13:24 - CONCLUSION: Splenic vein is patent throughout. There are massive left gastric varices clustering around the fundus of the stomach and a spontaneous splenorenal shunt is present. Dimas Osorio MD Objective Remarks GENERAL: Well-nourished, well-developed pleasant male patient in [facility]. Sleeping soundly upon entering room but awakens easily to voice. SKIN: Warm and dry. No rash. HEENT: Normocephalic. Atraumatic. EOMI. Mucous membranes pink and moist. NECK: Supple. Trachea midline. CARDIOVASCULAR: Regular rate and rhythm. S1, S2 noted. No murmur appreciated. RESPIRATORY: Nonlabored. Clear to auscultation. Breath sounds equal bilaterally. GASTROINTESTINAL: Abdomen soft, non-tender, nondistended. Normoactive bowel sounds x4. MUSCULOSKELETAL: No obvious deformities. Extremities without clubbing, cyanosis , or edema. NEUROLOGICAL: Awake and alert. No obvious cranial nerve deficits. Motor grossly within normal limits. Nonfocal. Normal speech. PSYCHIATRIC: Appropriate mood and affect; insight and judgment normal. Medications and IVs Current Medications Medications (Trade) Dose Ordered Sig/Kristopher Route Start Time Stop Time Status Last Admin (NS Flush) 2 ml UNSCH PRN IV FLUSH 07/09/17 00:30 (NS Flush) 2 ml BID IV FLUSH 07/09/17 09:00 07/10/17 20:16 (Tylenol) 650 mg Q4H PRN PO 07/09/17 00:30 (Zofran Inj) 4 mg Q4H PRN IVP 07/09/17 00:30 (Narcan Inj) 0.4 mg UNSCH PRN IV PUSH 07/09/17 00:30 (Aparna-Colace) 1 tab BID PO 07/09/17 09:00 07/10/17 20:15 (Milk Of Magnesia Liq) 30 ml Q12H PRN PO 07/09/17 00:30 (Senokot) 17.2 mg Q12H PRN PO 07/09/17 00:30 (Dulcolax Supp) 10 mg DAILY PRN RECTAL 07/09/17 00:30 (Lactulose Liq) 30 ml DAILY PRN PO 07/09/17 00:30 (Prinivil) 10 mg DAILY PO 07/09/17 09:00 07/10/17 11:33 (Ultram) 50 mg Q8H PRN PO 07/09/17 05:00 07/10/17 20:16 (NovoLOG SUPPLEMENTAL SCALE) 1 ACHS SLIDING SCALE SQ 07/09/17 08:00 07/10/17 12:00 (D50w (Vial) Inj) 50 ml UNSCH PRN IV PUSH 07/09/17 05:00 (Glucagon Inj) 1 mg UNSCH PRN OTHER 07/09/17 05:00 (Protonix Inj) 40 mg Q12HR IV PUSH 07/09/17 10:30 07/10/17 20:15 Sodium Chloride 1,000 ml @ 100 mls/hr Q10H IV 07/09/17 10:00 07/11/17 06:42 Ceftriaxone Sodium 1000 mg/ Sodium Chloride 100 ml @ 200 mls/hr Q24H IV 07/09/17 11:00 07/10/17 11:41 Lactated Ringer's 1,000 ml @ 30 mls/hr Q24H PRN IV 07/10/17 01:15 07/13/17 01:14 07/10/17 08:28 Sodium Chloride 500 ml @ 30 mls/hr [id number] PRN IV 07/10/17 01:15 07/13/17 01:14 (Lopressor) 25 mg SHRIMP TRAWLER CAPTAIN PRN PO 07/10/17 01:15 07/13/17 01:14 (Betadine 5% Antisepsis Kit) 1 applic SHRIMP TRAWLER CAPTAIN PRN EACH NARE 07/10/17 01:15 07/13/17 01:14 (Chlorhexidine 2% Cloth) 3 pack SHRIMP TRAWLER CAPTAIN PRN TOPICAL 07/10/17 01:15 07/13/17 01:14 (NovoLIN R INJ) See Protocol Table ... SHRIMP TRAWLER CAPTAIN PRN SQ 07/10/17 01:15 07/13/17 01:14 A/P Problem List: (1) Hematemesis/vomiting blood ICD Code: K92.0 - Hematemesis (2) Essential hypertension ICD Code: I10 - Essential (primary) hypertension (3) Diabetes mellitus with neuropathy ICD Code: E11.40 - Type 2 diabetes mellitus with diabetic neuropathy, unspecified Status: Chronic Assessment and Plan 67-year-old male with history of HTN, DM, diabetic neuropathy, hepatitis C, PTSD , presents with abdominal pain, hematemesis x1day. Transferred from [facility] ER Hematemesis/Abdominal Pain: upper GI bleeding, suspect variceal bleeding. CT abd /pelvis images reviewed, shows suspected cirrhotic liver with portal hypertension, splenomegaly, extensive varices LUQ and distal esophagus; colonic diverticula without inflammatory changes; mild umbilical hernia containing mesenteric fat -Hgb dropped to 7.7 -Continue IV Protonix 40mg bid -Continue on prophylactic antibiotics with IV Rocephin -Continue IVF -diet per gastroenterology - NPO for now for upcoming TIPS procedure -Consult GI, appreciate recommendations. -S/p EGD 07/[address] Gomez, showed Portal gastropathy, old blood in stomach , no esophageal varices, gastric varices with some old blood over ti-most likely cause of bleeding -MRV ordered to eval for splenic vein thrombosis - Splenic vein is patent throughout. There are massive left gastric varices clustering around the fundus of the stomach and a spontaneous splenorenal shunt is present. -IR consulted to eval for possible TIPS, scheduled at 1pm today -per GI, needs referral to tertiary center/hepatology clinic -GI also recommends starting Nadolol upon discharge Symptomatic Anemia: Hgb continues to drop, currently Hgb 8.7, decreased from 12.6. Patient now lightheaded. -secondary to GI bleeding as above -Hgb dropped to 7.7. S/P 2 units PRBCs -continue to monitor H&H, transfuse if Hgb < 8.0 Diabetes Mellitus -Hold home metformin -Monitor Accu-cheks and cover with SSI - hold ISS for now as patient is NPO Hypertension -hypotensive, improved s/p 2units PRBCs -Continue patient's Lisinopril 10 mg daily -Monitor BP, adjust antihypertensives as needed DVT prophylaxis: teds/SCDs. Avoid chemoprophylaxis secondary to GI bleeding/ Anemia. Discussed with patient, Amena VARGAS and Dr. Kohli Problem Qualifiers (1) Hematemesis/vomiting blood: Qualified Codes: K92.0 - Hematemesis (2) Diabetes mellitus with neuropathy: Qualified Codes: E11.40 - Type 2 diabetes mellitus with diabetic neuropathy, unspecified Erica Umanzor Jul 11, 2017 08:33
[2017-07-11 08:46] LABS: HEMO FLAGS AUTO DIFF
[2017-07-11 08:48] LABS: PLATELET ESTIMATE SMEAR LOW (NORMAL); PLATELET MORPHOLOGY NORMAL (NORMAL); SCAN/DIFF AUTO DIFF CONFIRMED
[2017-07-11 08:49] LABS: BICARBONATE 21.7 MEQ/L (21.0-32.0); POTASSIUM 3.5 MEQ/L (3.5-5.1)
[2017-07-11] MEDS: SODIUM CHLORIDE 0.9% FLUSH 10 ML FLUSH IV FLUSH SCH ×2 (09:00→20:27)
[2017-07-11] MEDS: LISINOPRIL 10 MG TAB PO SCH (09:00)
[2017-07-11] MEDS: PANTOPRAZOLE SODIUM 40 MG VIAL IV PUSH SCH ×2 (11:15→20:25)
[2017-07-11] MEDS: DOCUSATE SODIUM 50 MG/SENNA 8.6 MG TAB PO SCH ×2 (11:15→20:25)
[2017-07-11] MEDS: cefTRIAXone INJ 1,000 MG in SODIUM CHLORIDE 0.9% INJ 100 ML IV SCH (11:20)
[2017-07-11 12:00] VITALS: BP 109/55; PULSE 76; RESP 18; TEMP 98.3; O2SAT 97
[2017-07-11] MEDS ORDERED: IODIXANOL 320 MG/ML 50 ML VIAL (for RAD SPEC) IVCONTRAST ONE (16:24)
--- NOTE | 2017-07-11 16:43 | PD.RAD ---
Post Procedure Progress Note Pre Procedure Diagnosis: (1) Gastric varices (2) Vascular abnormalities of stomach with bleeding (3) Hematemesis/vomiting blood Post Procedure Diagnosis: (1) Hematemesis/vomiting blood (2) Gastric varices (3) Vascular abnormalities of stomach with bleeding Procedure Date: Jul 11, 2017 Supervising Radiologist: Gee Martinez Estimated blood loss: 5CC Plan of Activity Patient to Unit: PACU Patient Condition: Good Additional Comments: 67 Y/O with massive gastric varices and hematemesis. Attempted embolization via the splenorenal shunt. We were unable to access the splenic vein via the splenorenal shunt. Successful percutaneous trans hepatic embolization of the gastric varices. Multiple large varices embolized feeding via the splenic vein. Some varices measured up to 2 cm in size. Multiple embolization coils were used. Pt tolerated the procedure well. Full dictated report pending via PACS. See PACS Report for procedural detail/treatment Gee Martinez MD Jul 11, 2017 16:42
[2017-07-11] MEDS ORDERED: DO NOT ADM ANY ANTICOAGULANT DRUGS PRN (17:15)
--- NOTE | 2017-07-11 17:44 | RADRPT ---
EXAM DATE/TIME: 07/11/2017 14:23 [facility] COMPARISON: CT ABDOMEN & PELVIS W CONTRAST, July 08, 2017, 23:09. INVASIVE RADIOLOGY CONSULT, July 11 017, 0:00. INDICATIONS : Patient with a history of gastric varicies. MEDICAL HISTORY : HTN Diabetes Hep C SURGICAL HISTORY : Cholecystectomy ENCOUNTER: Initial ACUITY: 1 day PAIN SCORE: 2/10 LOCATION: Abdomen FLUORO TIME: 63.44 minutes IMAGE SERIES: 21 ACCESS SITE: Right femoral vein minutes CONTRAST: 1.) 130 cc Visipaque (iodixanol) DEVICE(S): 1.) Left gastric varices embolic coil(s) 15mm x25cm- X2 2.) Left gastric varices embolic coil(s) [id number] 3.) Left gastric varices embolic coil(s) [id number] 4.) Left gastric varices embolic coil(s) [id number]- X2 5.) Left gastric varices embolic coil(s) [id number] 6.) Left gastric varices embolic coil(s) 15x15 myere 7.) Left gastric varices Embolic coil(s) 10x5 tornado-X2 8.) Left gastric varices Embolic coil(s) [id number]- X2 Anesthesia and pain control was provided by the Anesthesia department. PROCEDURE : 1. Ultrasound-guided puncture of the access site. 2. IVC gram.. 3. left renal venogram. 4. Portal venogram. 5. splenic venogram. 6. Embolization of multiple varices arising from the splenic vein. 7. Multiple followup venograms. The patient is a 67-year-old who arrived of the ED department with hematemesis. The patient underwent CT imaging which demonstrated massive gastric varices within the fundus of the stomach. The patient subsequently underwent endoscopy which confirmed bleeding gastric varices. We were requested to evalu ate the patient for a possible TI PS procedure. The patient's CT scan of 07/08/17 was reviewed. The patient has a massive gastric varices and a very large splenorenal shunt. The intrahepatic and proximal extrahepatic portal venous system is quite sma ll in size measuring only approximately 5 mm. As such, it was felt placement of a TIPS Shunt would gordon ve limited durability secondary to its small size. Placement would be quite difficult due to the smal l size of the portal venous system. After thorough review, the decision was made to attempt to emboli ze the patient's varices from a femoral approach and retrograde catheter placement via the splenorena l shunt. If not successful, embolization would be performed via a percutaneous transhepatic approach. The risks, benefits and alternatives to the procedure were explained to the patient and the patient's family. Verbal and written consent was obtained. The site was prepped in sterile fashion. Full st erile technique was used, including cap, mask, sterile gloves and gown and a large sterile sheet. Gordon nd hygiene and 2% chlorhexidine and/or betadine/alcohol prep was utilized per protocol for cutaneous antisepsis. Sterile gel and sterile probe cover were utilized for ultrasound guidance. The skin and subcutaneous tissues were infiltrated with local anesthetic solution. With ultrasound and fluoroscopic guidance the right common femoral vein was accessed. A 4 Samoan hemo static sheath was placed. A 0.035 angled Glidewire and Cobra catheter was advanced through the sheath . The left renal vein was easily selected. The Cobra catheter was removed and a 6 Samoan Ansell one s gloria was advanced into the left renal vein. The patient's large varix arising from the left renal ve in was easily selected. Multiple attempts were made to traverse the varix and into the splenic circul ation using a renegade high flow catheter system. This was unsuccessful. Attention was then directed towards embolization via a transhepatic approach. A suitable site in the midaxillary line was selected. A 22 gauge micropuncture needle was advanced into the liver. A distal portal branch was easily cannulated. A 0.018 wire was advanced into the central portal vein and easil y tracked down into the patient's hepatic vein. A 3/4 combination dilator was advanced over the 0.018 wire. The 0.018 wire was exchanged for a 0.035 angle Glidewire. A 4 Samoan glide catheter was advanc ed into the splenic vein. Multiple angiographic runs were performed. Results: The examination confirmed the patient's massive gastric varices and splenorenal shunt arising from th e mid aspect of the splenic vein. The 4 Samoan sheath was exchanged for a 5 Samoan sheath. A 5 Samoan Marksmin catheter was advanced in to the splenic vein. The origin the more distal varix was selected. The catheter was easily advanced into position. The varix was embolized using multiple detachable embolization coils. Coil sizes are l isted above. Two followup runs were performed confirming significant reduction of flow within the karen ix. The catheter was pulled back. The more proximal varix was selected. Again, this was embolized without difficulty. Followup evaluation demonstrated significant decrease of flow within the varix. A third vessel was identified providing continued blood flow to the patient's gastric varices. This was embol ized as well. Followup evaluation demonstrated near-complete cessation of flow within the patient's varices. It was felt these would eventually completely shut down. Of note, on the followup evaluation the overall si ze and flow within the portal venous system had dramatically increased. The patient remained stable throughout the procedure. CONCLUSION: 1. Successful embolization of multiple gastric varices via a percutaneous, transhepatic approach. Gee Martinez MD on July 11, 2017 at 17:16 Board Certified Radiologist. This report was verified electronically.
[2017-07-11 20:20] VITALS: BP 125/67; PULSE 77; RESP 17; TEMP 98.1; O2SAT 96
[2017-07-11] MEDS: traMADol HCL 50 MG TAB PO PRN (20:25)
[2017-07-11 22:07] LABS: HEMATOCRIT 22.3 % (39.0-51.0)
[2017-07-11 22:12] LABS: REVIEW FLAG FINAL
[2017-07-12 00:10] VITALS: BP 98/53; PULSE 80; RESP 18; TEMP 99.6; O2SAT 95
[2017-07-12 04:08] LABS: HEMATOCRIT 22.1 % (39.0-51.0)
[2017-07-12 04:15] VITALS: BP 93/53; PULSE 83; RESP 19; TEMP 100.1; O2SAT 92
[2017-07-12 04:18] LABS: REVIEW FLAG FINAL
[2017-07-12 07:51] VITALS: BP 104/55; PULSE 85; RESP 18; TEMP 100.4; O2SAT 91
[2017-07-12] MEDS: INSULIN ASPART SUPPLEMENTAL SCALE SQ SCH ×4 (08:00→21:00)
[2017-07-12] MEDS: SODIUM CHLOR 0.9% 1000 ML INJ 1,000 ML IV SCH ×2 (08:00→18:00)
[2017-07-12] MEDS: PANTOPRAZOLE SODIUM 40 MG VIAL IV PUSH SCH ×2 (08:17→19:51)
[2017-07-12] MEDS: LISINOPRIL 10 MG TAB PO SCH (08:18)
[2017-07-12] MEDS: DOCUSATE SODIUM 50 MG/SENNA 8.6 MG TAB PO SCH ×2 (08:18→19:51)
[2017-07-12] MEDS: SODIUM CHLORIDE 0.9% FLUSH 10 ML FLUSH IV FLUSH SCH ×2 (08:23→19:51)
--- NOTE | 2017-07-12 08:44 | HHI.PR ---
Subjective Remarks in no acute distress. denies abdominal pain, nausea, vomiting. no further gross GI bleed. had occasional cough last night which has improved. Objective Vitals Vital Signs Date Time Temp Pulse Resp B/P (MAP) Pulse Ox O2 Delivery O2 Flow Rate FiO2 07/12/17 07:51 100.4 85 18 104/55 (71) 91 07/12/17 04:15 100.1 83 19 93/53 (66) 92 07/12/17 00:10 99.6 80 18 98/53 (68) 95 07/11/17 20:20 98.1 77 17 125/67 (86) 96 07/11/17 18:15 65 16 104/53 (70) 98 Nasal Cannula 2 07/11/17 18:00 65 16 100/51 (67) 96 Nasal Cannula 2 07/11/17 17:45 61 16 98/53 (68) 98 Nasal Cannula 2 07/11/17 17:30 62 16 104/51 (68) 98 Nasal Cannula 2 07/11/17 17:15 64 16 112/58 (76) 98 Nasal Cannula 2 07/11/17 17:00 66 16 115/56 (75) 97 Nasal Cannula 2 07/11/17 16:49 98.2 68 16 119/58 (78) 100 Nasal Cannula 2 07/11/17 12:00 98.3 76 18 109/55 (73) 97 I/O 07/11/17 07/11/17 07/11/17 07/12/17 07/12/17 07/12/17 07:00 15:00 23:00 07:00 15:00 23:00 Intake Total 950 ml 630 ml 360 ml Output Total 0 ml Balance 950 ml 630 ml 360 ml Intake Oral 150 ml 480 ml 360 ml IV Total 150 ml Packed Cells 800 ml Other 0 ml # Voids 2 1 2 # Bowel Movements 0 0 Result Diagram: 07/12/17 0356 07/11/17 0736 Imaging Last Impressions Embolization 07/11/17 0000 Signed Impressions: Service Date/Time: Tuesday, July 11, 2017 14:23 - CONCLUSION: 1. Successful embolization of multiple gastric varices via a percutaneous, transhepatic approach. Gee Martinez MD Abdominal Mag Res Venography 07/10/17 0000 Signed Impressions: Service Date/Time: Monday, July 10, 2017 13:24 - CONCLUSION: Splenic vein is patent throughout. There are massive left gastric varices clustering around the fundus of the stomach and a spontaneous splenorenal shunt is present. Dimas Osorio MD Objective Remarks GENERAL: This is a well-nourished, well-developed patient, in no apparent distress. CARDIOVASCULAR: Regular rate and regular rhythm without murmurs, gallops, or rubs. RESPIRATORY: Clear to auscultation. Breath sounds equal bilaterally. No wheezes , rales, or rhonchi. GASTROINTESTINAL: Abdomen soft, non-tender, nondistended. Normal, active bowel sounds MUSCULOSKELETAL: Extremities without clubbing, cyanosis, or edema. NEURO: Alert & Oriented x4 to person, place, time, situation. Moves all ext x4 Procedures EGD embolization of multiple gastric varices Medications and IVs Current Medications Sodium Chloride (NS Flush) 2 ml UNSCH PRN IV FLUSH FLUSH AFTER USING IV ACCESS ; Start 07/09/17 at 00:30 Sodium Chloride (NS Flush) 2 ml BID IV FLUSH Last administered on 07/12/17 08 :23; Start 07/09/17 at 09:00 Acetaminophen (Tylenol) 650 mg Q4H PRN PO TEMP > 100.4, pain 1-10; Start 07/09 at 00:30 Ondansetron HCl (Zofran Inj) 4 mg Q4H PRN IVP NAUSEA OR VOMITING; Start at 00:30 Naloxone HCl (Narcan Inj) 0.4 mg UNSCH PRN IV PUSH SEE LABEL COMMENTS; Start 07/09/17 at 00:30 Senna/Docusate Sodium (Aparna-Colace) 1 tab BID PO Last administered on 08:18; Start 07/09/17 at 09:00 Magnesium Hydroxide (Milk Of Magnesia Liq) 30 ml Q12H PRN PO Mild constipation ; Start 07/09/17 at 00:30 Sennosides (Senokot) 17.2 mg Q12H PRN PO Moderate constipation; Start at 00:30 Bisacodyl (Dulcolax Supp) 10 mg DAILY PRN RECTAL SEVERE CONSITIPATION; Start 07/09/17 at 00:30 Lactulose (Lactulose Liq) 30 ml DAILY PRN PO SEVERE CONSITIPATION; Start 07/09 at 00:30 Lisinopril (Prinivil) 10 mg DAILY PO Last administered on 07/10/17 11:33; Start 07/09/17 at 09:00 Tramadol HCl (Ultram) 50 mg Q8H PRN PO PAIN Last administered on 07/11/17 20: 25; Start 07/09/17 at 05:00 Insulin Aspart (NovoLOG SUPPLEMENTAL SCALE) 1 ACHS SLIDING SCALE SQ Last administered on 07/10/17 12:00; Start 07/09/17 at 08:00 Dextrose (D50w (Vial) Inj) 50 ml UNSCH PRN IV PUSH HYPOGLYCEMIA-SEE COMMENTS; Start 07/09/17 at 05:00 Glucagon (Glucagon Inj) 1 mg UNSCH PRN OTHER HYPOGLYCEMIA-SEE COMMENTS; Start 07/09/17 at 05:00 Pantoprazole Sodium (Protonix Inj) 40 mg Q12HR IV PUSH Last administered on 08:17; Start 07/09/17 at 10:30 Sodium Chloride 1,000 ml @ 100 mls/hr Q10H IV Last administered on 07/11/17 17:56; Start 07/09/17 at 10:00 Ceftriaxone Sodium 1000 mg/ Sodium Chloride 100 ml @ 200 mls/hr Q24H IV Last administered on 07/11/17 11:20; Start 07/09/17 at 11:00 Lactated Ringer's 1,000 ml @ 30 mls/hr Q24H PRN IV SEE LABEL COMMENTS Last administered on 07/10/17 08:28; Start 07/10/17 at 01:15; Stop 07/13/17 at 01: 14 Sodium Chloride 500 ml @ 30 mls/hr [id number] PRN IV SEE LABEL COMMENTS; Start at 01:15; Stop 07/13/17 at 01:14 Metoprolol Tartrate (Lopressor) 25 mg SLASHER HAND PRN PO SEE LABEL COMMENTS; Start 07/10/17 at 01:15; Stop 07/13/17 at 01:14 Povidone Iodine (Betadine 5% Antisepsis Kit) 1 applic SLASHER HAND PRN EACH NARE SEE LABEL COMMENTS; Start 07/10/17 at 01:15; Stop 07/13/17 at 01:14 Chlorhexidine Gluconate (Chlorhexidine 2% Cloth) 3 pack SLASHER HAND PRN TOPICAL SEE LABEL COMMENTS; Start 07/10/17 at 01:15; Stop 07/13/17 at 01:14 Insulin Human Regular (NovoLIN R INJ) See Protocol Table ... SLASHER HAND PRN SQ SEE PROTOCOL TABLE; Start 07/10/17 at 01:15; Stop 07/13/17 at 01:14 Gadodiamide (Omniscan Pf Inj) 30 ml STK-MED ONCE IV PUSH Last administered on 07/10/17t 15:21; Start 07/10/17 at 15:21; Stop 07/10/17 at 15:22; Status DC Propofol (Diprivan 200 Mg/20 ml Inj) 400 mg STK-MED ONCE IV ; Start 07/10/17 at 12:00; Stop 07/11/17 at 11:18; Status DC Lidocaine HCl (Xylocaine-Mpf 1% Inj) 5 ml STK-MED ONCE OTHER ; Start 07/10/17 at 12:00; Stop 07/11/17 at 11:18; Status DC Iodixanol (VISIPAQUE 320 INJ (Rad Spec)) 130 ml STK-MED ONCE IVCONTRAST Last administered on 07/11/17t 16:24; Start 07/11/17 at 16:24; Stop 07/11/17 at 16 :25; Status DC Miscellaneous Information ALL NURSING DEPARTME... UNSCH PRN .XX SEE LABEL COMMENTS; Start 07/11/17 at 17:15; Stop 07/12/17 at 17:14 A/P Problem List: (1) Hematemesis/vomiting blood ICD Code: K92.0 - Hematemesis (2) Essential hypertension ICD Code: I10 - Essential (primary) hypertension (3) Diabetes mellitus with neuropathy ICD Code: E11.40 - Type 2 diabetes mellitus with diabetic neuropathy, unspecified Status: Chronic Assessment and Plan A/P Hematemesis/Abdominal Pain: upper GI bleeding, suspect variceal bleeding. CT abd/pelvis shows suspected cirrhotic liver with portal hypertension, splenomegaly, extensive varices LUQ and distal esophagus; colonic diverticula without inflammatory changes; mild umbilical hernia containing mesenteric fat MRV ordered to eval for splenic vein thrombosis - Splenic vein is patent throughout. There are massive left gastric varices clustering around the fundus of the stomach and a spontaneous splenorenal shunt is present. -S/p EGD 07/[address] Gomez, showed Portal gastropathy, old blood in stomach , no esophageal varices, gastric varices with some old blood over ti-most likely cause of bleeding - s/p embolization of multiple gastric varices -continue Protonix -Continue on prophylactic antibiotics with IV Rocephin -continue to monitor H/H -Continue IVF -GI following. -per GI, needs referral to tertiary center/hepatology clinic -GI also recommends starting Nadolol upon discharge anemia- due to GI bleed. -secondary to GI bleeding as above - S/P 2 units PRBCs -continue to monitor H&H. Diabetes Mellitus -Hold home metformin -Monitor Accu-cheks and cover with SSI - hold ISS for now as patient is NPO Hypertension -hypotensive, improved s/p 2units PRBCs -hold lisinopril for now. -Monitor BP, adjust antihypertensives as needed DVT prophylaxis: teds/SCDs. Avoid chemoprophylaxis secondary to GI bleeding/ Anemia. Problem Qualifiers (1) Hematemesis/vomiting blood: Qualified Codes: K92.0 - Hematemesis (2) Diabetes mellitus with neuropathy: Qualified Codes: E11.40 - Type 2 diabetes mellitus with diabetic neuropathy, unspecified Charlene Mckeon MD Jul 12, 2017 08:44
--- NOTE | 2017-07-12 10:35 | HHI.GIFU ---
Subjective Remarks resting the bed No further bleeding note abd soft temp. 100.4 (Chandrika Allen) Objective Vitals I&O Vital Signs Date Time Temp Pulse Resp B/P (MAP) Pulse Ox O2 Delivery O2 Flow Rate FiO2 07/12/17 07:51 100.4 85 18 104/55 (71) 91 07/12/17 04:15 100.1 83 19 93/53 (66) 92 07/12/17 00:10 99.6 80 18 98/53 (68) 95 07/11/17 20:20 98.1 77 17 125/67 (86) 96 07/11/17 18:15 65 16 104/53 (70) 98 Nasal Cannula 2 07/11/17 18:00 65 16 100/51 (67) 96 Nasal Cannula 2 07/11/17 17:45 61 16 98/53 (68) 98 Nasal Cannula 2 07/11/17 17:30 62 16 104/51 (68) 98 Nasal Cannula 2 07/11/17 17:15 64 16 112/58 (76) 98 Nasal Cannula 2 07/11/17 17:00 66 16 115/56 (75) 97 Nasal Cannula 2 07/11/17 16:49 98.2 68 16 119/58 (78) 100 Nasal Cannula 2 07/11/17 12:00 98.3 76 18 109/55 (73) 97 I/O 07/11/17 07/11/17 07/11/17 07/12/17 07/12/17 07/12/17 07:00 15:00 23:00 07:00 15:00 23:00 Intake Total 950 ml 630 ml 360 ml Output Total 0 ml Balance 950 ml 630 ml 360 ml Intake Oral 150 ml 480 ml 360 ml IV Total 150 ml Packed Cells 800 ml Other 0 ml # Voids 2 1 2 # Bowel Movements 0 0 Laboratory Laboratory Tests Test 07/11/17 21:48 07/12/17 03:56 Hemoglobin 7.8 7.8 Hematocrit 22.3 22.1 Imaging Last Impressions Embolization 07/11/17 0000 Signed Impressions: Service Date/Time: Tuesday, July 11, 2017 14:23 - CONCLUSION: 1. Successful embolization of multiple gastric varices via a percutaneous, transhepatic approach. Gee Martinez MD Abdominal Mag Res Venography 07/10/17 0000 Signed Impressions: Service Date/Time: Monday, July 10, 2017 13:24 - CONCLUSION: Splenic vein is patent throughout. There are massive left gastric varices clustering around the fundus of the stomach and a spontaneous splenorenal shunt is present. Dimas Osorio MD Physical Exam HEENT: Pupils round and reactive to light; normocephalic; atraumatic; no jaundice. NECK: Neck is supple, no JVD, no lymphadenopathy. CHEST: Chest is clear to auscultation and percussion. CARDIAC: Regular rate and rhythm. ABDOMEN: Soft, nondistended, nontender; no hepatosplenomegaly; bowel sounds are soft in all four quadrants. EXTREMITIES: No clubbing, cyanosis, or edema. SKIN: Normal; no rash; no jaundice. PROCESS DEVELOPMENT TECHNICIAN: No focal deficits; alert and oriented times three., no anxiety. (Chandrika Allen) Assessment and Plan Plan ASSESSMENT: - Hematemesis. Pt with hx of liver cirrhosis. No hx of PUD or Upper GIB. EGD 07/[address] Gomez, Portal gastropathy, old blood in stomach, no esophageal varices, gastric varices with some old blood likely cause of bleedin s/p embolization of multiple gastric varices Hematemesis/Abdominal Pain: Gastric Varies. Abd soft, non tender, bowel sounds active, tolerating diet. CT abd/pelvis shows suspected cirrhotic liver with portal hypertension, splenomegaly, extensive varices LUQ and distal esophagus; colonic diverticula without inflammatory changes; mild umbilical hernia containing mesenteric fat MRV ordered to eval for splenic vein thrombosis - Splenic vein is patent throughout. There are massive left gastric varices clustering around the fundus of the stomach and a spontaneous splenorenal shunt is present. 07/11, In IR, Attempted embolization via the splenorenal shunt. We were unable to access the splenic vein via the splenorenal shunt. Successful percutaneous trans hepatic embolization of the gastric varices. Multiple large varices embolized feeding via the splenic vein. Some varices measured up to 2 cm in size. Multiple embolization coils were used. Patient tolerated procedure well. -Anemia Stable . H&H Labs monitored daily, 7.8 X 48hrs. - Liver cirrhosis, mildly elevated LFTs. Remote hx of ETOH use. Hx hepatitis C , s/p tx (unsuccessfully with interferon/ribavirin and then successfully with Harvoni). LFTs stable. INR 1.2 - Fever, on IV antibiotics - Abn. U/A, DM, PTSD, HTN, per attending. PLAN: - Protonix 40mg IV BID, If remains stable , will transition to PO in am - Monitor HH, check in am - Supportive care,-per GI, needs referral to tertiary center/hepatology clinic -GI also recommends starting Nadolol upon discharge - Further recommendations to follow based on results of above - Pt seen and examined by Dr. Gomez and myself and this note is written on her behalf (Chandrika Allen) Physician Comments seen, examined agree with above constipation feeling better we will start Nadolol upon dc- will need referral hepatology/transplant center op if stable can d/c home in am fu gi in 12- weeks (Danielle Gomez MD) Chandrika Allen Jul 12, 2017 10:35 Danielle Gomez MD Jul 12, 2017 17:51
[2017-07-12 12:00] VITALS: BP 118/57; PULSE 79; RESP 18; TEMP 99.3; O2SAT 94
[2017-07-12] MEDS: cefTRIAXone INJ 1,000 MG in SODIUM CHLORIDE 0.9% INJ 100 ML IV SCH (12:09)
[2017-07-12 13:28] LABS: HEMATOCRIT 21.5 % (39.0-51.0)
[2017-07-12 13:34] LABS: REVIEW FLAG FINAL
[2017-07-12 16:00] VITALS: BP 116/55; PULSE 76; RESP 20; TEMP 100.6; O2SAT 97
[2017-07-12 16:54] LABS: HEMATOCRIT 23.5 % (39.0-51.0)
[2017-07-12 16:56] LABS: REVIEW FLAG FINAL
--- NOTE | 2017-07-12 16:57 | PD.RAD ---
Radiology Note 67 yo pod # 1 s/p embolization of multiple gastric varices. Pt. is alert, awake, stable. with complaints of a mild cough. hemoglobin is stable at approximately 7.6. Pt. did spike a fever to 100.6 last night. A/P 1. Pt. is stable post procedure. Will continue to follow his hemoglobin. 2. fever likely secondary to post anesthesia atelectasis. Pt encouraged to ambulate. Gee Martinez MD Jul 12, 2017 16:57
[2017-07-12] MEDS ORDERED: BISACODYL 10 MG SUPP RECTAL ONE (18:00)
[2017-07-12] MEDS: traMADol HCL 50 MG TAB PO PRN (19:51)
[2017-07-12 20:00] VITALS: BP 106/55; PULSE 76; RESP 22; TEMP 99.6; O2SAT 97
[2017-07-13] VITALS: BP 103/55; PULSE 81; RESP 16; TEMP 100; O2SAT 98
[2017-07-13] MEDS: SODIUM CHLOR 0.9% 1000 ML INJ 1,000 ML IV SCH (04:00)
[2017-07-13 04:13] VITALS: BP 100/56; PULSE 101; RESP 17; TEMP 99.3; O2SAT 96
[2017-07-13] MEDS: DOCUSATE SODIUM 50 MG/SENNA 8.6 MG TAB PO SCH (07:39)
[2017-07-13] MEDS: PANTOPRAZOLE SODIUM 40 MG VIAL IV PUSH SCH (07:40)
[2017-07-13] MEDS: INSULIN ASPART SUPPLEMENTAL SCALE SQ SCH ×2 (07:46→12:00)
[2017-07-13 08:00] VITALS: BP 117/59; PULSE 75; RESP 18; TEMP 99; O2SAT 94
[2017-07-13] MEDS: SODIUM CHLORIDE 0.9% FLUSH 10 ML FLUSH IV FLUSH SCH (09:00)
[2017-07-13] MEDS ORDERED: PERI PO (11:13)
[2017-07-13] MEDS ORDERED: PROT40TA PO (11:13)
--- NOTE | 2017-07-13 11:15 | HHI.DCPOC ---
Discharge Care Plan Diagnosis: (1) Vascular abnormalities of stomach with bleeding (2) Diabetes mellitus with neuropathy (3) Hematemesis/vomiting blood (4) Gastric varices (5) Essential hypertension Goals to Promote Your Health * To prevent worsening of your condition and complications * To maintain your health at the optimal level Directions to Meet Your Goals Take your medications as prescribed Follow your dietary instruction Follow activity as directed Keep your appointments as scheduled Take your immunizations and boosters as scheduled If your symptoms worsen call your PCP, if no PCP go to Urgent Care Center or Emergency Room Smoking is Dangerous to Your Health. Avoid second hand smoke Call the 24-hour hour crisis hotline for domestic abuse at Ly Ng MD Jul 13, 2017 11:15
--- NOTE | 2017-07-13 11:16 | HHI.DS ---
Discharge Summary Admission Date Jul 10, 2017 at 12:05 Discharge Date: Jul 13, 2017 Admitting Diagnosis (1) Hematemesis/vomiting blood ICD Code: K92.0 - Hematemesis (2) Essential hypertension ICD Code: I10 - Essential (primary) hypertension Diagnosis: Secondary (3) Diabetes mellitus with neuropathy ICD Code: E11.40 - Type 2 diabetes mellitus with diabetic neuropathy, unspecified Diagnosis: Secondary Status: Chronic (4) Gastric varices ICD Code: I86.4 - Gastric varices Diagnosis: Principal Procedures EGD embolization of multiple gastric varices Brief History - From Admission Mr. Mckeon is 67 years old, with history of hypertension, diabetic neuropathy, of both feet, hepatitis C, and PTSD. Mr. Mckeon reported being well on Sunday (07/07/17). When he awoke on Sunday, he noted discomfort in his stomach. He said that he didn't feel like eating and had a small breakfast which she said was unusual for him. Over the course the day the discomfort continued and lately the day he went to lay down to rest. After proximally 45 minutes, he said he got up to urinate and while standing in front of the toilet he threw up bright red blood. Associated with his vomiting he felt lightheaded," warm on the upper portion of my body", developed a cold clammy sweat, and "I felt like he was going to pass out". It was at this time that he decided to go to [facility] [place] for evaluation of his condition. While there he said he had another episode of emesis with similar symptoms as above. Mr. Mckeon stated that he received medication for nausea (Zofran 4 mg) which" really helped". Review of records also indicates that he received 40 mg Protonix IV. [place] [facility] [place]. At time of interview, Mr. Mckeon denied black tarry stools, hematuria, cough, shortness of breath, and chest pain. He stated he has no prior history of hematemesis. CBC/BMP: 07/12/17 1603 07/11/17 0736 Significant Findings Laboratory Tests Test 07/10/17 12:30 07/10/17 18:00 07/11/17 07:36 07/11/17 21:48 Hemoglobin 8.3 GM/DL (13.0-17.0) 7.7 GM/DL (13.0-17.0) 8.5 GM/DL (13.0-17.0) 7.8 GM/DL (13.0-17.0) Hematocrit 23.4 % (39.0-51.0) 21.3 % (39.0-51.0) 23.8 % (39.0-51.0) 22.3 % (39.0-51.0) Red Blood Count 2.59 MIL/MM3 (4.50-5.90) Platelet Count 92 TH/MM3 (150-450) Platelet Estimate LOW (NORMAL) Prothrombin Time 12.9 SEC (9.8-11.6) Blood Urea Nitrogen 27 MG/DL (7-18) Random Glucose 127 MG/DL (74-106) Calcium Level 7.9 MG/DL (8.5-10.1) Chloride Level 111 MEQ/L (98-107) Test 07/12/17 03:56 07/12/17 12:34 07/12/17 16:03 Hemoglobin 7.8 GM/DL (13.0-17.0) 7.6 GM/DL (13.0-17.0) 8.2 GM/DL (13.0-17.0) Hematocrit 22.1 % (39.0-51.0) 21.5 % (39.0-51.0) 23.5 % (39.0-51.0) Imaging Last Impressions Embolization 07/11/17 0000 Signed Impressions: Service Date/Time: Tuesday, July 11, 2017 14:23 - CONCLUSION: 1. Successful embolization of multiple gastric varices via a percutaneous, transhepatic approach. Gee Martinez MD Abdominal Mag Res Venography 07/10/17 0000 Signed Impressions: Service Date/Time: Monday, July 10, 2017 13:24 - CONCLUSION: Splenic vein is patent throughout. There are massive left gastric varices clustering around the fundus of the stomach and a spontaneous splenorenal shunt is present. Dimas Osorio MD PE at Discharge GENERAL: This is a well-nourished, well-developed patient, in no apparent distress. CARDIOVASCULAR: Regular rate and regular rhythm without murmurs, gallops, or rubs. RESPIRATORY: Clear to auscultation. Breath sounds equal bilaterally. No wheezes , rales, or rhonchi. GASTROINTESTINAL: Abdomen soft, non-tender, nondistended. Normal, active bowel sounds MUSCULOSKELETAL: Extremities without clubbing, cyanosis, or edema. NEURO: Alert & Oriented x4 to person, place, time, situation. Moves all ext x4 Pt update on day of discharge Follow-up for hematemesis/gastric varices Patient denied any bleeding. He stated that he is doing a lot better. He denied any shortness of breathing, chest pain, palpitation, lightheadedness/dizziness. Patient feels like he is doing well. During interview nurse practitioner Sil Borges was at the bedside during the interview. Also spoke to his during the interview with the patient as requested by the patient. Hospital Course This is a 59-year-old female who presented with Hematemesis/Abdominal Pain: upper GI bleeding, suspect variceal bleeding. CT abd/pelvis shows suspected cirrhotic liver with portal hypertension, splenomegaly, extensive varices LUQ and distal esophagus; colonic diverticula without inflammatory changes; mild umbilical hernia containing mesenteric fat MRV ordered to eval for splenic vein thrombosis - Splenic vein is patent throughout. There are massive left gastric varices clustering around the fundus of the stomach and a spontaneous splenorenal shunt is present. -Patient had EGD 07/[address] Gomez, showed Portal gastropathy, old blood in stomach, no esophageal varices, gastric varices with some old blood over ti- most likely cause of bleeding - s/p embolization of multiple gastric varices by IR. He was treated empirically also with Protonix. -After patient was treated he did not have any more GI bleed and hemoglobin was stable. He also was asymptomatic. -per GI, needs referral to tertiary center/hepatology clinic -GI also recommends starting Nadolol upon discharge but since patient's blood pressure has been low per GI okay if patient starts nadolol as outpatient. anemia- due to GI bleed. -Secondary to gastric varices. See treatment as above. He was transfused with 2 units packed red blood cells. He responded appropriately to the transfusion. Diabetes Mellitus -Metformin health since patient had procedure. Restarted on the day of discharge since he has been doing well. hx Hypertension -Patient has been hypotensive since his hospitalization but improved with transfusion. He has been normotensive. Blood pressure medication discontinued and patient was told me to follow with primary care physician in regards to this. Patient was asymptomatic. Pt Condition on Discharge: Stable Discharge Disposition: Discharge Home Discharge Time: <= 30 minutes Discharge Instructions DIET: Follow Instructions for: Diabetic Diet Activities you can perform: Regular-No Restrictions Follow up Referrals: Gastroenterology - 1 Week with Danielle Gomez MD PCP Follow-up - 1 Week PCP Follow-up @ PCP UNKNOWN. PATIENT WILL CALL New Medications: Pantoprazole (Protonix) 40 Mg Tab 40 MG PO BID for Reflux, #60 TAB 0 Refills Sennosides-Docusate Sodium (Gnp Senna Plus 8.6-50 mg) 8.6 Mg-50 Mg Tab 1 TAB PO BID for Constipation, #14 TAB Continued Medications: Cholecalciferol (D3 Super Strength) 2,000 Unit Cap 1000 UNITS PO DAILY for Nutritional Supplement, #30 CAP 0 Refills Gemfibrozil (Gemfibrozil) 600 Mg Tab 600 MG PO BIDAC, #60 TAB 0 Refills Take 30 minutes prior to breakfast and dinner. Metformin (Metformin) 500 Mg Tab 500 MG PO BIDPC for Blood Sugar Management, #60 TAB 0 Refills Tramadol (Tramadol) 50 Mg Tab 50 MG PO Q8H PRN for PAIN, TAB 0 Refills Vitamin E (Vitamin E) 200 Unit Cap 400 UNITS PO DAILY for Nutritional Supplement, CAP 0 Refills Discontinued Medications: Lisinopril (Lisinopril) 10 Mg Tab 10 MG PO DAILY, #30 TAB 0 Refills Ly Ng MD Jul 13, 2017 11:16
--- NOTE | 2017-07-13 11:22 | HHI.GIFU ---
Subjective Remarks Up in chair. States he is doing well. Tolerating diet. No bleeding. No abdominal pain. Hoping to go home later this afternoon. Objective Vitals I&O Vital Signs Date Time Temp Pulse Resp B/P (MAP) Pulse Ox O2 Delivery O2 Flow Rate FiO2 07/13/17 08:00 99.0 75 18 117/59 (78) 94 07/13/17 04:13 99.3 101 17 100/56 (71) 96 07/13/17 00:00 100.0 81 16 103/55 (71) 98 07/12/17 20:00 99.6 76 22 106/55 (72) 97 07/12/17 16:00 100.6 76 20 116/55 (75) 97 07/12/17 12:00 99.3 79 18 118/57 (77) 94 I/O 07/12/17 07/12/17 07/12/17 07/13/17 07/13/17 07/13/17 06:59 14:59 22:59 06:59 14:59 22:59 Intake Total 360 ml 960 ml 720 ml 480 ml Balance 360 ml 960 ml 720 ml 480 ml Intake Oral 360 ml 960 ml 720 ml 480 ml # Voids 2 4 2 2 # Bowel Movements 0 0 Laboratory Laboratory Tests Test 07/12/17 12:34 07/12/17 16:03 Hemoglobin 7.6 8.2 Hematocrit 21.5 23.5 Imaging Last Impressions Embolization 07/11/17 0000 Signed Impressions: Service Date/Time: Tuesday, July 11, 2017 14:23 - CONCLUSION: 1. Successful embolization of multiple gastric varices via a percutaneous, transhepatic approach. Gee Martinez MD Abdominal Mag Res Venography 07/10/17 0000 Signed Impressions: Service Date/Time: Monday, July 10, 2017 13:24 - CONCLUSION: Splenic vein is patent throughout. There are massive left gastric varices clustering around the fundus of the stomach and a spontaneous splenorenal shunt is present. Dimas Osorio MD Physical Exam HEENT: Normocephalic; atraumatic; no jaundice. CHEST: CTA CARDIAC: RRR ABDOMEN: Soft, nondistended, nontender; hepatosplenomegaly; bowel sounds are soft in all four quadrants. EXTREMITIES: BLE edema. SKIN: Normal; no rash; no jaundice. SILVERWARE WASHER: No focal deficits; alert and oriented times three Assessment and Plan Plan ASSESSMENT: - Hematemesis. Pt with hx of liver cirrhosis. No hx of PUD or Upper GIB. Sudden onset of hematemesis with 3 episodes of hematemesis with small amount red blood with blood clots and melena. S/P EGD (07/10/17)----> 1. Portal gastropathy old blood in stomach no esophageal varices gastric varices with some old blood over ti-most likely cause of bleeding 2. Retroflexed views revealed gastric varices. Pathology with gastric antral mucosal biopsy with mild acute and chronic non-specific gastritis negative for intestinal metaplasia and dysplasia, najma stain, negative for helicobacter. S/P embolization gastric varices (07/11/17)--> Attempted embolization via the splenorenal shunt- unable to acces the splenorenal shunt. S/P percutaneous trans hepatic embolization of the gastric varices. multiple large varices embolized feeding via the splenic vein. Some varices measured up to 2 cm in size. Multiple embolization coils were used. No active bleeding. Tolerating diet. HH stable at 8.2/23.5. Protonix. Will add Nadolol at FU appointment. - Anemia. Mild. EGD as above. HH Stable. - Liver cirrhosis, mildly elevated LFTs. Remote hx of ETOH use. Hx hepatitis C , s/p tx (unsuccessfully with interferon/ribavirin and then successfully with Harvoni). LFTs stable. - Hx abnormal US with coarsened echotexture with nodularity along the capsule and stable 2.5 cm mass in the region of the raoul hepatis. S/P EUS (09/23/15) ----> unremarkable EUS. Has had elevated AFP at time, but last checked in August of 2015 and this was 3.6. - Abn. U/A, DM, PTSD, HTN, per attending. PLAN: - Okay to d/c home from GI standpoint - Low sodium diet - Cont. PPI with BID dosing - Consider adding Nadolol at FU appointment if B/P allows - Referral to tertiary as outpatient- hepatology clinic - Rpt. EGD 3 months - Further recommendations to follow based on results of above - Pt seen and examined by Dr. Gomez and myself and this note is written on her behalf Odilia Borges Jul 13, 2017 11:22
[2017-07-13 11:44] LABS: HEMATOCRIT 23.8 % (39.0-51.0)
[2017-07-13 12:00] VITALS: BP 130/64; PULSE 80; RESP 18; TEMP 98; O2SAT 99
[2017-07-13] MEDS: cefTRIAXone INJ 1,000 MG in SODIUM CHLORIDE 0.9% INJ 100 ML IV SCH (12:25)
== END 2017-07-13 18:06 | disposition home or self-care (01) | DRG 271 ==
LOC: NEDDLT 01:52 → NEPFCDU 01:54 → OBSVTOIN 07-10 12:05 → N06B 07-11 18:35
PROVIDERS: ADMIT Family Medicine; ATTEND Family Medicine
PROC: 0DB68ZX Excision of Stomach, Via Natural or Artificial Opening Endoscopic, Diagnostic (ICD-10-PCS; 2017-07-10)
PROC: 30253N1 (ICD-10-PCS; 2017-07-10)
PROC: 06L13DZ Occlusion of Splenic Vein with Intraluminal Device, Percutaneous Approach (ICD-10-PCS; principal; 2017-07-11)
DX: I86.4 Gastric varices (principal); K92.0 Hematemesis; K76.6 Portal hypertension; E11.40 Type 2 diabetes mellitus with diabetic neuropathy, unspecified; J98.11 Atelectasis; K74.60 Unspecified cirrhosis of liver; I10 Essential (primary) hypertension; F43.10 Post-traumatic stress disorder, unspecified; B19.20 Unspecified viral hepatitis C without hepatic coma; Z87.891 Personal history of nicotine dependence; Z86.718 Personal history of other venous thrombosis and embolism; K22.70 Barrett's esophagus without dysplasia; K42.9 Umbilical hernia without obstruction or gangrene; R16.1 Splenomegaly, not elsewhere classified; K57.30 Diverticulosis of large intestine without perforation or abscess without bleeding; K31.89 Other diseases of stomach and duodenum; K59.00 Constipation, unspecified; D64.89 Other specified anemias; Z79.84 Long term (current) use of oral hypoglycemic drugs
CPT/HCPCS: 36012; 36430; 37241; 74177; 75810; 75825; 75831; 75891; 76937; 76942; 80048; 80053; 81001; 82105; 82948; 83605; 83690; 85014; 85018; 85025; 85610; 85730; 86850; 86900; 86901; 86920; 87086; 88305; 88312; 93005; 96374; 96375; A9579; C1769; C1887; C1894; C8900; C9113; J0696; J1815; J2405; J7030; J7120; P9016; Q9967

== ENCOUNTER → 2017-11-07 | Outpatient (CLI) | payer OTHER ==
[~2017-11-07] VITALS: Ht 175.3 cm; Wt 84.5 kg
[~2017-11-07] MED LIST changes: -ACETAMINOPHEN 325 MG TAB PO PRN; -BISACODYL 10 MG SUPP RECTAL PRN; +DO NOT ADM ANY ANTICOAGULANT DRUGS PRN; -LACTULOSE SYRUP 20 GM/30 ML CUP PO PRN; +LIDOCAINE HCL 1% PF 5 ML SYRINGE OTHER ONE; -LISI10TA3 PO; -MAGNESIUM HYDROXIDE SUSP 30 ML CUP PO PRN; -NALOXONE HCL 0.4 MG/ML AMP IV PUSH PRN; -ONDANSETRON HCL 4 MG/2 ML VIAL IVP PRN; +PERI PO; +PROPOFOL 200 MG/20 ML AMP IV ONE; +PROT40TA PO; -SENNOSIDES 8.6 MG TAB PO PRN; -SODIUM CHLORIDE 0.9% FLUSH 10 ML FLUSH IV FLUSH PRN
[2017-11-07 13:31] VITALS: BP 155/65; PULSE 70; RESP 18; TEMP 97.9; O2SAT 98
--- NOTE | 2017-11-07 16:48 | EKG ---
Date Performed: 11/07/2017 Time Performed: 09:26:59 PTAGE: 67 years EKG: Sinus rhythm NONSPECIFIC ST & T-WAVE ABNORMALITY BORDERLINE ECG PREVIOUS TRACING : 07/10/2017 08.27 Compared to previous tracing, rate slower, ST changes less prominent DOCTOR: Tracy Church Interpretating Date/Time 11/07/2017 16:45:38
--- NOTE | 2017-11-07 20:49 | PD.PROCEDR ---
GI Procedure PROCEDURE PERFORMED Endoscopic ultrasound INDICATION FOR PROCEDURE Nodule in the fundus PROCEDURE: The procedure, risks and benefits were discussed with Ms. Vivas and informed consent was obtained. Anesthesia sedated her with Diprivan. She was placed in the left lateral decubitus position. Endoscopic ultrasound: The Pentax videoscope was introduced through the oropharynx and advanced to the second portion of the duodenum. FINDINGS: There was quite a bit of vascularity surrounding the GE junction suggestive of esophageal varices and will was supposed to be a nodule in the fundus was in fact gastric varices flow was noted in the gastric varices the endoscopic view of the esophagus was basically no significant vascularity noted in the lumen and the esophageal mucosa was unremarkable the gastric mucosa appeared to be somewhat edematous with some erythema with a cobblestone appearance suggestive of portal gastropathy the endosonographic appearance of the gastric wall was that of mostly unremarkable at different levels of the body and the antrum the pancreatic parenchyma was also noted to be unremarkable the bile duct was also unremarkable ESTIMATED BLOOD LOSS: None SPECIMENS REMOVED: None COMPLICATIONS: None IMPRESSION: Esophageal and gastric varices Portal gastropathy PLAN: Low-salt diet Follow-up in clinic Elías Valadez MD Nov 07, 2017 20:49
== END ==
LOC: HSDC 08:47
PROVIDERS: ATTEND Internal Medicine Gastroenterology
DX: K76.6 Portal hypertension (principal); K31.89 Other diseases of stomach and duodenum; R94.31 Abnormal electrocardiogram [ECG] [EKG]; I86.4 Gastric varices; I85.00 Esophageal varices without bleeding
CPT/HCPCS: 43259; 93005

== ENCOUNTER 2018-01-29 06:05 | Observation (INO) | payer OTHER ==
[~2018-01-29] VITALS: Ht 175.3 cm; Wt 80.0 kg
[2018-01-29] VITALS (7 sets, daily range): BP systolic 121–160; BP diastolic 58–74; PULSE 66–90; RESP 16–22; TEMP 97.7–98.5; O2SAT 93–98
[~2018-01-29 06:05] MED LIST changes: -DO NOT ADM ANY ANTICOAGULANT DRUGS PRN; -LIDOCAINE HCL 1% PF 5 ML SYRINGE OTHER ONE; -PERI PO; -PROPOFOL 200 MG/20 ML AMP IV ONE
[2018-01-29] MEDS ORDERED: SODIUM CHLOR 0.9% 1000 ML INJ 1,000 ML IV SCH (06:14)
[2018-01-29] MEDS ORDERED: PANTOPRAZOLE INJ 80 MG in SODIUM CHLORIDE 0.9% INJ 35 ML IV ONE (06:14)
[2018-01-29] MEDS ORDERED: SODIUM CHLORIDE 0.9% FLUSH 10 ML FLUSH IVF PRN (06:15)
[2018-01-29] MEDS ORDERED: OCTREOTIDE INJ 50 MCG/ML AMP IV PUSH ONE (06:15)
--- NOTE | 2018-01-29 06:56 | PD ---
HPI Chief Complaint: GI Complaint Time Seen by Provider: 06:14 Travel History International Travel<30 days: No Contact w/Intl Traveler<30days: No Traveled to known affect area: No History of Present Illness HPI The patient is a 67 year old male who presents to the [facility] emergency department with a history of vomiting blood at approximately 4 AM today. He reports that he vomited into the toilet, therefore it is difficult to estimate the amount of blood. The patient reports that it occurred only one time. He reports that he had 2 bowel movements this morning that were brown in color. He denies having any blood in his stool or black or tarry stools. The patient does however have a prior history of GI bleed from varices. His last variceal bleed was in June 2017. He is followed by mechanic foreman in [place]. The patient was previously on a beta-dillan, however he felt fatigue and a lightheaded sensation with it, therefore he discontinued it. The patient reports that he does occasionally get heartburn approximately 1 time every couple of months for which she takes omeprazole as needed. He last omeprazole 1 week ago. He reports that with the episode of hematemesis he had lightheaded sensation, diaphoresis, warming sensation of body. He denies having any chest pain, chest pressure, or shortness of breath. He reports having a mild aching sensation in the left side of his abdomen. On review of systems otherwise, the patient denies having any known recent fevers, cough, congestion, neck pain, diarrhea, urinary symptoms, or neurologic symptoms. [facility] Past Medical History Narrative Medical The patient's past medical history is significant for hepatitis C status post treatment approximately 5-1/[address] lizy griffith, history of peripheral neuropathy, posttraumatic stress disorder, history of cirrhosis with varices status post bleed in June 2017 with treatment by embolization. Cardiovascular Problems: Yes Diabetes: Yes Patient Takes Glucophage: No Gastrointestinal Disorders: Yes Genitourinary: Yes (uti) Hepatitis: Yes (hep c) Hypertension: Yes Immune Disorder: No Musculoskeletal: Yes (rotator cuff) Neurologic: No Respiratory: No Past Surgical History Narrative Surgical The patient's past surgical history is significant for right rotator cuff repair , endoscopy, embolization of variceal bleed. Abdominal Surgery: Yes (gallbladder) Other Surgery: Yes Social History Alcohol Use: No Tobacco Use: No Substance Use: No Allergies-Medications (Allergen,Severity, Reaction): Coded Allergies: No Known Allergies (Verified Allergy, Severe, 01/29/18) Reported Meds & Prescriptions Reported Meds & Active Scripts Active Protonix (Pantoprazole Sodium) 40 Mg Tab 40 Mg PO BID Reported Vitamin E 200 Unit Cap 400 Units PO DAILY D3 Super Strength (Cholecalciferol) 2,000 Unit Cap 1,000 Units PO DAILY Tramadol (Tramadol HCl) 50 Mg Tab 50 Mg PO Q8H PRN Metformin (Metformin HCl) 500 Mg Tab 500 Mg PO BIDPC Gemfibrozil 600 Mg Tab 600 Mg PO BIDAC Take 30 minutes prior to breakfast and dinner. Review of Systems Except as stated in HPI: all other systems reviewed are Neg General / Constitutional: No: Fever Eyes: No: Visual changes HENT: No: Headaches Cardiovascular: No: Chest Pain or Discomfort Respiratory: No: Shortness of Breath Gastrointestinal: Positive: Nausea, Vomiting, Abdominal Pain, Hematemesis, Indigestion, No: Diarrhea, Hematochezia, Changes in Bowel Habits, Loss of Appetite Genitourinary: No: Dysuria Musculoskeletal: No: Pain Skin: No Rash Neurologic: No: Weakness, Focal Abnormalities, Change in Mentation, Slurred Speech, Sensory Disturbance Psychiatric: No: Depression Endocrine: No: Polydipsia Hematologic/Lymphatic: No: Easy Bruising Physical Exam Narrative General: The patient is a well-developed well-nourished male in no acute distress. Head and Neck exam: Head is normocephalic atraumatic. Eyes: EOMI, pupils are equal round and reactive to light. Nose: Midline septum with pink mucous membranes Mouth: Dentition unremarkable. Moist mucus membranes. Posterior oropharynx is not erythematous. No tonsillar hypertrophy. Uvula midline. Airway patent. Neck: No palpable lymphadenopathy. No nuchal rigidity. No thyromegaly. Cardiovascular: Regular rate and rhythm without murmurs, gallops, or rubs. No pulse deficit to the extremities on simultaneous auscultation and palpation of his radial artery. Lungs: Clear to auscultation bilaterally. No wheezes, rhonchi, or rales. Abdomen: Soft, with reported minimal discomfort on palpation of the left upper and left lower quadrant of the abdomen. No other tenderness on palpation of the other quadrants of the abdomen. No guarding, rebound, or rigidity. Normal bowel sounds are audible. No tenderness on palpation of McBurney's point. Negative Hauser sign. Extremities: No clubbing, cyanosis, or edema. 2+ pulses in all 4 extremities. No calf tenderness on palpation. Back: No spinous process tenderness to palpation. No costovertebral angle tenderness to palpation. Neurologic Exam: Grossly nonfocal. Skin Exam: No rash noted. Intact skin that is warm and dry. Data Data Last Documented VS Vital Signs Date Time Temp Pulse Resp B/P (MAP) Pulse Ox O2 Delivery O2 Flow Rate FiO2 01/29/18 06:06 97.7 71 22 121/58 (79) 94 Orders Orders Complete Blood Count With Diff (01/29/18 06:14) Comprehensive Metabolic Panel (01/29/18 06:14) Lipase (01/29/18 06:14) Ammonia (01/29/18 06:14) Prothrombin Time / Inr (Pt) (01/29/18 06:14) Act Partial Throm Time (Ptt) (01/29/18 06:14) Type And Screen (01/29/18 06:14) Ecg Monitoring (01/29/18 06:14) Iv Access Insert/Monitor (01/29/18 06:14) Oximetry (01/29/18 06:14) Sodium Chlor 0.9% 1000 Ml Inj (Ns 1000 M (01/29/18 06:14) Sodium Chloride 0.9% Flush (Ns Flush) (01/29/18 06:15) Sodium Chloride 0.9... W/Pantoprazole In (01/29/18 06:14) Sodium Chloride 0.9... W/Pantoprazole In (01/29/18 06:14) Octreotide Inj (Sandostatin Inj) (01/29/18 06:15) Sodium Chlorid 0.9%... W/Octreotide Inj (01/29/18 06:14) MDM Medical Decision Making Medical Screen Exam Complete: Yes Emergency Medical Condition: Yes Medical Record Reviewed: Yes Differential Diagnosis Variceal bleed, versus peptic ulcer related bleed, versus hemorrhagic esophagitis Narrative Course During the course of the patient's emergency department visit, the patient's history, examination, and differential diagnosis were reviewed with the patient. The patient was placed on a engine monitor with oximetry and frequent blood pressure monitoring. The patient had IV access obtained and blood work sent for analysis. The patient was typed and screened for blood. The patient was initially provided Protonix 80 mg IV, followed by a Protonix drip, octreotide 50 mcg IV bolus, followed by an octreotide drip, normal saline at 1 25 mL/h. The patient's laboratory studies and imaging studies are pending at the conclusion of my shift. The patient's case will be checked out to the oncoming emergency physician to disposition the patient based on the conclusion of his workup. The patient will require admission to the hospital for upper GI bleed. Diagnosis Primary Impression: Upper GI bleed Admitting Information Admitting Physician Requests: Admit Loan Aden MD Jan 29, 2018 06:56
[2018-01-29 06:58] LABS: AUTOMATED NEUTROPHIL # 5.4 TH/MM3 (1.8-7.7); BASOPHIL # 0.1 TH/MM3 (0-0.2); BASOPHIL % 0.8 % (0.0-2.0); EOSINOPHIL # 0.2 TH/MM3 (0-0.4); EOSINOPHIL % 2.3 % (0.0-4.0); HEMATOCRIT 34.9 % (39.0-51.0); HEMOGLOBIN 11.8 GM/DL (13.0-17.0); LYMPH % 9.7 % (9.0-44.0); LYMPHOCYTE # 0.7 TH/MM3 (1.0-4.8); MEAN CELL VOLUME 94.8 FL (80.0-100.0); MEAN CORPUSCULAR HEMOGLOBIN 32.1 PG (27.0-34.0); MEAN CORPUSCULAR HGB CONC 33.8 % (32.0-36.0); MEAN PLATELET VOLUME 8.4 FL (7.0-11.0); MONO % 9.3 % (0.0-8.0); MONOCYTE # 0.6 TH/MM3 (0-0.9); NEUT % 77.9 % (16.0-70.0); PLATELET COUNT 110 TH/MM3 (150-450); RED BLOOD COUNT 3.68 MIL/MM3 (4.50-5.90); RED CELL DISTRIBUTION WIDTH 15.5 % (11.6-17.2); WHITE BLOOD COUNT 6.9 TH/MM3 (4.0-11.0)
[2018-01-29] MEDS: OCTREOTIDE INJ 500 MCG in SODIUM CHLORID 0.9% 500 ML INJ 499.5 ML IV SCH ×2 (07:07→17:35)
[2018-01-29] MEDS: PANTOPRAZOLE INJ 80 MG in SODIUM CHLORIDE 0.9% INJ 100 ML IV SCH ×2 (07:07→16:14)
[2018-01-29 07:08] LABS: INTERNATIONAL NORMALIZED RATIO 1.3 RATIO; PROTHROMBIN TIME - PATIENT 12.7 SEC (9.8-11.6)
[2018-01-29 07:13] LABS: ALBUMIN 3.3 GM/DL (3.4-5.0); ALT (GPT) 12 U/L (12-78); AST (GOT) 12 U/L (15-37); BICARBONATE 24.1 MEQ/L (21.0-32.0); BLOOD UREA NITROGEN 15 MG/DL (7-18); CALCIUM 8.6 MG/DL (8.5-10.1); CHLORIDE 111 MEQ/L (98-107); CREATININE 0.74 MG/DL (0.60-1.30); GLOMERULAR FILTRATION RATE 105 ML/MIN (>89); GLUCOSE,RANDOM 170 MG/DL (74-106); SODIUM (NA) 142 MEQ/L (136-145)
[2018-01-29 07:15] LABS: ALKALINE PHOSPHATASE 162 U/L (45-117); TOTAL BILIRUBIN ADULT 0.9 MG/DL (0.2-1.0); TOTAL PROTEIN 6.4 GM/DL (6.4-8.2)
[2018-01-29] MEDS ORDERED: METOCLOPRAMIDE HCL 10 MG/2 ML VIAL IV PUSH ONE (07:45)
[2018-01-29] MEDS ORDERED: IOHEXOL 350 MG/ML 10 ML VIAL (for RAD DIAG) IVCONTRAST ONE (08:21)
--- NOTE | 2018-01-29 09:11 | RADRPT ---
EXAM DATE: 01/29/2018 8:23 AM EDT AGE/SEX: 67 years / Male INDICATIONS: Abdominal pain. Vomiting blood. CLINICAL DATA: This is the patient's initial encounter. Patient reports that signs and symptoms have been present for 1 day and indicates a pain score of 5/10. MEDICAL/SURGICAL HISTORY: Cardiovascular disease. Diabetes. Hepatitis C. Gastric varices. Cholecystectomy. Repaired gastric varices. ORAL CONTRAST: No oral contrast ingested. RADIATION DOSE: 12.87 CTDI (mGy) COMPARISON: [facility], CT ABDOMEN & PELVIS W CONTRAST, 07/08/2017. . TECHNIQUE: Multiple contiguous axial images were obtained through the abdomen and pelvis following b olus infusion of 92 ml Omnipaque 350 (iohexol) nonionic water-soluble contrast as a single exam dos e. No oral contrast ingested. Using automated exposure control and adjustment of the mA and/or kV ac cording to patient size, radiation dose was kept as low as reasonably achievable to obtain optimal di agnostic quality images. DICOM format image data is available electronically for review and comparis on. FINDINGS: Lower Lungs: Mild infiltrate in the posterior right lung base. There is also some chronic interstitia l changes bilaterally. Liver: The liver has a homogeneous density without space-occupying lesion. There is no dilation of th e biliary tree. Gallbladder surgically removed. No significant changes compared to the prior study. Spleen: The spleen is enlarged measuring 16.6 cm. No focal defects and spleen are demonstrated. Ther e continue to be varices in the region of the splenic hilum and adjacent to the medial fundus of the stomach. Patient appears to be status post coiling of some of these varices. This limits the evaluati on of this area due to metallic artifact. Pancreas: Limited visualization due to metallic artifact produced by the metallic coils location. Th e visualized portions of the pancreas appear to be unremarkable and stable. Kidneys: Normal in size and shape. No evidence of mass or hydronephrosis. Adrenal Glands: Unremarkable. Aorta: Stable atherosclerotic changes. Bowel/Mesentery: The bowel loops are grossly unremarkable. The cecum and sigmoid colon have a normal configuration. A few scattered diverticula are seen along the descending and sigmoid colon. No infla mmatory changes are demonstrated. The appendix is unremarkable. There is stool throughout the colon. Abdominal Wall: Small umbilical hernia containing mesenteric fat. No significant change.. Retroperitoneum: No evidence of adenopathy in the retrocrural, para-aortic, or deep pelvic regions. Bladder: [place] thickening involving the posterior wall urinary bladder. No new or significant mcgowan ges. No calcified stones. Reproductive Organs: No abnormal masses or calcifications seen. Inguinal: The inguinal region is unremarkable without evidence of adenopathy. Bony Structures: Stable mild degenerative changes. No significant changes compared to the prior study. CONCLUSION: 1. Mild infiltrate in the posterior right lower lung. Chronic bilateral interstitial lung changes. 2. Status post coiling of several varices in the region of the splenic hilum. 3. Splenomegaly. 4. Diverticulosis of the descending and sigmoid colon without inflammatory changes. 5. Stable mild thickening involving the posterior wall of urinary bladder. 6. Stable small umbilical hernia containing mesenteric fat. Electronically signed by: Adam Juan MD 01/29/2018 9:09 AM EDT
[2018-01-29] MEDS ORDERED: IOHEXOL 350 MG/ML 100 ML BTL (for RAD DIAG) OTHER ONE (09:37)
[2018-01-29] MEDS ORDERED: NALOXONE HCL 0.4 MG/ML AMP IV PUSH PRN (09:45)
[2018-01-29] MEDS ORDERED: LACTULOSE SYRUP 20 GM/30 ML CUP PO PRN (09:45)
[2018-01-29] MEDS ORDERED: SODIUM CHLORIDE 0.9% FLUSH 10 ML FLUSH IV FLUSH PRN (09:45)
[2018-01-29] MEDS ORDERED: SENNOSIDES 8.6 MG TAB PO PRN (09:45)
[2018-01-29] MEDS ORDERED: BISACODYL 10 MG SUPP RECTAL PRN (09:45)
[2018-01-29] MEDS ORDERED: METOCLOPRAMIDE HCL 10 MG/2 ML VIAL IV PUSH PRN (09:45)
[2018-01-29] MEDS ORDERED: MAGNESIUM HYDROXIDE SUSP 30 ML CUP PO PRN (09:45)
--- NOTE | 2018-01-29 09:55 | RADRPT ---
EXAM DATE: 01/29/2018 9:49 AM EDT AGE/SEX: 67 years / Male INDICATIONS: Vomiting. CLINICAL DATA: This is the patient's initial encounter. Patient reports that signs and symptoms have been present for 1 day and indicates a pain score of 3/10. MEDICAL/SURGICAL HISTORY: Hypertension. Hepatitis C. Diabetes. Cholecystectomy. COMPARISON: No prior exams available for comparison. FINDINGS: A single AP view of the chest demonstrates the lungs to be symmetrically aerated without evidence of mass, infiltrate or effusion. Mild chronic interstitial changes are noted in both lung bases. The car diomediastinal contours are unremarkable. Osseous structures are intact. CONCLUSION: No acute intrathoracic disease. Electronically signed by: Adam Juan MD 01/29/2018 9:54 AM EDT
--- NOTE | 2018-01-29 10:06 | PD ---
Physical Exam Narrative GENERAL: 67-year-old male in no apparent distress SKIN: Focused skin assessment warm/dry. HEAD: Atraumatic. Normocephalic. EYES: Pupils equal and round. No injection or drainage. ENT: No nasal bleeding or discharge. Mucous membranes pink and moist. NECK: Trachea midline. CARDIOVASCULAR: Regular rate and rhythm. RESPIRATORY: No accessory muscle use. no increased effort GASTROINTESTINAL: Abdomen nondistended. MUSCULOSKELETAL: No obvious deformities. No clubbing. No cyanosis. NEUROLOGICAL: Awake and alert, Motor grossly within normal limits. Normal speech. Data Data Last Documented VS Vital Signs Date Time Temp Pulse Resp B/P (MAP) Pulse Ox O2 Delivery O2 Flow Rate FiO2 01/29/18 07:17 67 17 124/60 (81) 94 Room Air 01/29/18 06:06 97.7 Orders Orders Complete Blood Count With Diff (01/29/18 06:14) Comprehensive Metabolic Panel (01/29/18 06:14) Lipase (01/29/18 06:14) Ammonia (01/29/18 06:14) Prothrombin Time / Inr (Pt) (01/29/18 06:14) Act Partial Throm Time (Ptt) (01/29/18 06:14) Type And Screen (01/29/18 06:14) Ecg Monitoring (01/29/18 06:14) Iv Access Insert/Monitor (01/29/18 06:14) Oximetry (01/29/18 06:14) Sodium Chlor 0.9% 1000 Ml Inj (Ns 1000 M (01/29/18 06:14) Sodium Chloride 0.9% Flush (Ns Flush) (01/29/18 06:15) Sodium Chloride 0.9... W/Pantoprazole In (01/29/18 06:14) Sodium Chloride 0.9... W/Pantoprazole In (01/29/18 06:14) Octreotide Inj (Sandostatin Inj) (01/29/18 06:15) Sodium Chlorid 0.9%... W/Octreotide Inj (01/29/18 06:14) Ct Abd/Pel W Iv Contrast(Rout) (01/29/18 06:56) Metoclopramide Inj (Reglan Inj) (01/29/18 07:45) Iohexol 350 Inj (Omnipaque 350 Inj) (01/29/18 08:21) Chest, Single Ap (01/29/18 ) Admit Order (Ed Use Only) (01/29/18 09:35) Labs Laboratory Tests Test 01/29/18 06:40 White Blood Count 6.9 TH/MM3 Red Blood Count 3.68 MIL/MM3 Hemoglobin 11.8 GM/DL Hematocrit 34.9 % Mean Corpuscular Volume 94.8 FL Mean Corpuscular Hemoglobin 32.1 PG Mean Corpuscular Hemoglobin Concent 33.8 % Red Cell Distribution Width 15.5 % Platelet Count 110 TH/MM3 Mean Platelet Volume 8.4 FL Neutrophils (%) (Auto) 77.9 % Lymphocytes (%) (Auto) 9.7 % Monocytes (%) (Auto) 9.3 % Eosinophils (%) (Auto) 2.3 % Basophils (%) (Auto) 0.8 % Neutrophils # (Auto) 5.4 TH/MM3 Lymphocytes # (Auto) 0.7 TH/MM3 Monocytes # (Auto) 0.6 TH/MM3 Eosinophils # (Auto) 0.2 TH/MM3 Basophils # (Auto) 0.1 TH/MM3 CBC Comment DIFF FINAL Differential Comment Prothrombin Time 12.7 SEC Prothromb Time International Ratio 1.3 RATIO Activated Partial Thromboplast Time 28.8 SEC Blood Urea Nitrogen 15 MG/DL Creatinine 0.74 MG/DL Random Glucose 170 MG/DL Total Protein 6.4 GM/DL Albumin 3.3 GM/DL Calcium Level 8.6 MG/DL Alkaline Phosphatase 162 U/L Aspartate Amino Transf (AST/SGOT) 12 U/L Alanine Aminotransferase (ALT/SGPT) 12 U/L Total Bilirubin 0.9 MG/DL Sodium Level 142 MEQ/L Potassium Level 4.4 MEQ/L Chloride Level 111 MEQ/L Carbon Dioxide Level 24.1 MEQ/L Anion Gap 7 MEQ/L Estimat Glomerular Filtration Rate 105 ML/MIN Ammonia 110 MCMOL/L Lipase 192 U/L MDM Supervised Visit with SORAYA: No Interpretation(s) CBC & BMP Diagram 01/29/18 06:40 Total Protein 6.4, Albumin 3.3 L, Calcium Level 8.6, Alkaline Phosphatase 162 H , Aspartate Amino Transf (AST/SGOT) 12 L, Alanine Aminotransferase (ALT/SGPT) 12 , Total Bilirubin 0.9 Last 24 hours Impressions Abdomen/Pelvis CT 01/29/18 0656 Signed Impressions: CONCLUSION: 1. Mild infiltrate in the posterior right lower lung. Chronic bilateral inters titial lung changes. 2. Status post coiling of several varices in the region of the splenic hilum. 3. Splenomegaly. 4. Diverticulosis of the descending and sigmoid colon without inflammatory nicole nges. 5. Stable mild thickening involving the posterior wall of urinary bladder. 6. Stable small umbilical hernia containing mesenteric fat. Chest X-Ray 01/29/18 0000 Signed Impressions: CONCLUSION: No acute intrathoracic disease. Narrative Course signed over to me to follow workup and admit patient updated and agrees to plan, ct chest with possible infiltrate, patient without leukocytosis, fever or symptoms and chest x-ray is normal so we will hold antibiotics Physician Communication Physician Communication dr jaime agrees to admit Diagnosis Primary Impression: Upper GI bleed Additional Impressions: Hematemesis/vomiting blood Qualified Codes: K92.0 - Hematemesis Hepatic encephalopathy Admitting Information Admitting Physician Requests: Admit Stacy Turpin MD Jan 29, 2018 10:06
[2018-01-29 10:13] LABS: HEMATOCRIT 31.1 % (39.0-51.0); HEMOGLOBIN 10.6 GM/DL (13.0-17.0)
--- NOTE | 2018-01-29 11:14 | PD.CONS ---
HPI History of Present Illness This is a 67 year old M with PMH significant for cirrhosis with past complications of gastric varices, at one point requiring percutaneous embolization of the gastric varices in June 2017. Pt reports cirrhosis is from history of IV drug use and alcohol use. Last IV drug use was in 1968 and last ETOH drink was in the . Pt denies ever having paracentesis in the past. He is not currently on any medications for his liver. Reports he was seen at [facility] for possible transplant in August of this year but declined transplant at this facility [facility]. Pt presented to the hospital this morning for complaints of hematemesis x 2, first episode at 4 am and last episode at 6 am. Denies any associated acid reflux, heartburn, abdominal pain, melena, and hematochezia. Pts last EGD/EUS was in October of this year --> Esophageal and gastric varices, portal gastropathy. Last colonoscopy in 2014 revealed pandiverticulosis, internal and external hemorrhoids. Pts current GI doctor is Dr. Reich in [place]. (Stefani Eaton) PFSH Past Medical History Cirrhosis with portal hypertension, esophageal varices, and gastric varices History of hepatitis C S/P successful treatment with Harvoni Hyperlipidemia Anemia GERD BPH Past Surgical History EUS EGD Colonoscopy Percutaneous embolization of gastric varices Cholecystectomy Liver biopsy Rotators cuff repeat Venous thrombectomy (Stefani Eaton) Coded Allergies: No Known Allergies (Verified Allergy, Severe, 01/29/18) Social History Previous IV drug use- last use in 1968 Last ETOH in Quit smoking in the (Stefani Eaton) Review of Systems Gastrointestinal: COMPLAINS OF: Nausea, Vomiting, Swelling of Abdomen, Hematemesis, DENIES: Abdominal pain, Black stools, Bloody stools, Constipation, Diarrhea, Difficulty Swallowing, Odynophagia, Heartburn (Stefani Eaton) GI Exam Vitals I&O Vital Signs Date Time Temp Pulse Resp B/P (MAP) Pulse Ox O2 Delivery O2 Flow Rate FiO2 01/29/18 09:59 73 16 160/74 (102) 95 Room Air 01/29/18 07:17 67 17 124/60 (81) 94 Room Air 01/29/18 06:06 97.7 71 22 121/58 (79) 94 I/O 01/28/18 01/28/18 01/28/18 01/29/18 01/29/18 01/29/18 07:00 15:00 23:00 07:00 15:00 23:00 Intake Total 35 ml Output Total 250 ml Balance -215 ml Intake IV Total 35 ml Output Emesis 250 ml Imaging Last Impressions Abdomen/Pelvis CT 01/29/18 0656 Signed Impressions: CONCLUSION: 1. Mild infiltrate in the posterior right lower lung. Chronic bilateral inters titial lung changes. 2. Status post coiling of several varices in the region of the splenic hilum. 3. Splenomegaly. 4. Diverticulosis of the descending and sigmoid colon without inflammatory nicole nges. 5. Stable mild thickening involving the posterior wall of urinary bladder. 6. Stable small umbilical hernia containing mesenteric fat. Chest X-Ray 01/29/18 0000 Signed Impressions: CONCLUSION: No acute intrathoracic disease. Laboratory Test 01/29/18 06:40 01/29/18 10:00 White Blood Count 6.9 TH/MM3 Red Blood Count 3.68 MIL/MM3 Hemoglobin 11.8 GM/DL 10.6 GM/DL Hematocrit 34.9 % 31.1 % Mean Corpuscular Volume 94.8 FL Mean Corpuscular Hemoglobin 32.1 PG Mean Corpuscular Hemoglobin Concent 33.8 % Red Cell Distribution Width 15.5 % Platelet Count 110 TH/MM3 Mean Platelet Volume 8.4 FL Neutrophils (%) (Auto) 77.9 % Lymphocytes (%) (Auto) 9.7 % Monocytes (%) (Auto) 9.3 % Eosinophils (%) (Auto) 2.3 % Basophils (%) (Auto) 0.8 % Neutrophils # (Auto) 5.4 TH/MM3 Lymphocytes # (Auto) 0.7 TH/MM3 Monocytes # (Auto) 0.6 TH/MM3 Eosinophils # (Auto) 0.2 TH/MM3 Basophils # (Auto) 0.1 TH/MM3 CBC Comment DIFF FINAL Differential Comment Prothrombin Time 12.7 SEC Prothromb Time International Ratio 1.3 RATIO Activated Partial Thromboplast Time 28.8 SEC Blood Urea Nitrogen 15 MG/DL Creatinine 0.74 MG/DL Random Glucose 170 MG/DL Total Protein 6.4 GM/DL Albumin 3.3 GM/DL Calcium Level 8.6 MG/DL Alkaline Phosphatase 162 U/L Aspartate Amino Transf (AST/SGOT) 12 U/L Alanine Aminotransferase (ALT/SGPT) 12 U/L Total Bilirubin 0.9 MG/DL Sodium Level 142 MEQ/L Potassium Level 4.4 MEQ/L Chloride Level 111 MEQ/L Carbon Dioxide Level 24.1 MEQ/L Anion Gap 7 MEQ/L Estimat Glomerular Filtration Rate 105 ML/MIN Ammonia 110 MCMOL/L Lipase 192 U/L Physical Examination HEENT: Normocephalic; atraumatic CHEST: Even/unlabored CARDIAC: RRR ABDOMEN: Distended, soft, nontender, bowel sounds active EXTREMITIES: No clubbing, cyanosis, or edema. SKIN: Normal; no rash; no jaundice. [employer]ATOR: Alert and oriented times three. (Stefani Eaton) Assessment and Plan Plan Assessment: - Hematemesis x 2 that began at 4 am- denies any associated abdominal pain or changes in stool Cirrhosis with history of ETOH abuse, IV drug use, and history of Hepatitis C S/P successful treatment with Harvoni. Previous hematemesis from bleeding gastric varices that required percutaneous embolization in Jun 2017. Pt has had follow up EGD since then, last one in October 2017 at same time he had EUS for fundic nodule -->Esophageal and gastric varices, portal gastropathy. Not currently on any medication for his liver. Currently followed by GI Dr. Reich in [place]. Was seen at [facility] for possible liver transplant, however, pt declined work up at this facility and [facility]. Of note, according to office records pt was previously on Inderal but this made him feel dizzy - Abdominal swelling- pt has noticed some swelling in his abdomen. Denies previous paracentesis. Not on any diuretics. CT abdomen and pelvis W IV contrast (01/29) Status post coiling of several varices in the region of the splenic hilum. Splenomegaly. Diverticulosis of the descending and sigmoid colon without inflammatory changes. Stable mild thickening involving the posterior wall of urinary bladder. Stable small umbilical hernia containing mesenteric fat. Last colonoscopy in 2014 revealed pandiverticulosis, internal and external hemorrhoids. - Hyperammonemia- ammonia-110 however pt is asymptomatic Plan: EGD tomorrow Obtain consent Clear liquids today NPO after MN Octreotide gtt Protonix gtt Monitor H/H Lactulose Further recommendations based on clinical course and results of above Pt has been seen and examined by myself and Dr. Christensen and this note is written on his behalf (Stefani Eaton) Physician Comments Seen and examined with DARNELL, no active bleeding at this time. IV octreotide/ protonix. EGD planned. Monitor H/H. Previous procedures in JUN 29 and October 28 showed no esophageal varices. s/p coiling of gastric varices. Dr Gomez will follow. Thank you (Sindhu Christensen MD) Stefani Eaton Jan 29, 2018 11:14 Sindhu Christensen MD Jan 29, 2018 17:31
[2018-01-29] MEDS: SODIUM CHLOR 0.9% 1000 ML INJ 1,000 ML IV SCH ×2 (11:24→14:00)
--- NOTE | 2018-01-29 14:59 | HHI.HP ---
[facility] Ad[facility] Diagnosis gi bleed Diagnoses: Chief Complaint: Vomiting blood Travel History International Travel<30 Days: No Contact w/Intl Traveler <30 Da: No Traveled to Known Affected Are: No History of Present Illness This is a 67 year old M with PMH significant for cirrhosis with past complications of gastric varices, at one point requiring percutaneous embolization of the gastric varices in June 2017. Pt reports cirrhosis is from history of IV drug use and alcohol use. Last IV drug use was in 1968 and last ETOH drink was in the . Pt denies ever having paracentesis in the past. He is not currently on any medications for his liver. Reports he was seen at [facility] for possible transplant in August of this year but declined transplant at this facility and would like to go through the OR for further work up. Pt presented to the hospital this morning for complaints of hematemesis x 2, first episode at 4 am and last episode at 6 am. Denies any associated acid reflux, heartburn, abdominal pain, melena, and hematochezia. Pts last EGD/EUS was in October of this year --> Esophageal and gastric varices, portal gastropathy. Last colonoscopy in 2014 revealed pandiverticulosis, internal and external hemorrhoids. Pts current GI doctor is Dr. Reich in [place]. Review of Systems Except as stated in HPI: all other systems reviewed are Neg Past Family Social History Past Medical History Cirrhosis with portal hypertension, esophageal varices, and gastric varices History of hepatitis C S/P successful treatment with Harvoni Hyperlipidemia Anemia GERD BPH Past Surgical History EUS EGD Colonoscopy Percutaneous embolization of gastric varices Cholecystectomy Liver biopsy Rotators cuff repeat Venous thrombectomy Allergies: Coded Allergies: No Known Allergies (Verified Allergy, Severe, 01/29/18) Family History Since family healthy. Father has some GI problems. Mom with cardiac problems. Social History Previous IV drug use- last use in 1968 Last ETOH in Quit smoking in the Physical Exam Vital Signs Vital Signs Date Time Temp Pulse Resp B/P (MAP) Pulse Ox O2 Delivery O2 Flow Rate FiO2 01/29/18 13:21 01/29/18 11:27 73 19 144/63 (90) 93 Room Air 01/29/18 09:59 73 16 160/74 (102) 95 Room Air 01/29/18 07:17 67 17 124/60 (81) 94 Room Air 01/29/18 06:06 97.7 71 22 121/58 (79) 94 Physical Exam GENERAL: This is a well-nourished, well-developed patient, in no apparent distress. SKIN: Pale. HEAD: Atraumatic. Normocephalic. No temporal or scalp tenderness. EYES: Pupils equal round and reactive. Extraocular motions intact. No scleral icterus. No injection or drainage. ENT: Nose without bleeding, purulent drainage or septal hematoma. Throat without erythema, tonsillar hypertrophy or exudate. Uvula midline. Airway patent. NECK: Trachea midline. No JVD or lymphadenopathy. Supple, nontender, no meningeal signs. CARDIOVASCULAR: Regular rate and rhythm without murmurs, gallops, or rubs. RESPIRATORY: Clear to auscultation. Breath sounds equal bilaterally. No wheezes , rales, or rhonchi. GASTROINTESTINAL: Abdomen soft, non-tender, mildly distended. No guarding. MUSCULOSKELETAL: Extremities without clubbing, cyanosis, or edema. No joint tenderness, effusion, or edema noted. No calf tenderness. Negative Homans sign bilaterally. NEUROLOGICAL: Awake and alert. Cranial nerves II through XII intact. Motor and sensory grossly within normal limits. Five out of 5 muscle strength in all muscle groups. Normal speech. Laboratory Laboratory Tests Test 01/29/18 06:40 01/29/18 10:00 White Blood Count 6.9 Red Blood Count 3.68 Hemoglobin 11.8 10.6 Hematocrit 34.9 31.1 Mean Corpuscular Volume 94.8 Mean Corpuscular Hemoglobin 32.1 Mean Corpuscular Hemoglobin Concent 33.8 Red Cell Distribution Width 15.5 Platelet Count 110 Mean Platelet Volume 8.4 Neutrophils (%) (Auto) 77.9 Lymphocytes (%) (Auto) 9.7 Monocytes (%) (Auto) 9.3 Eosinophils (%) (Auto) 2.3 Basophils (%) (Auto) 0.8 Neutrophils # (Auto) 5.4 Lymphocytes # (Auto) 0.7 Monocytes # (Auto) 0.6 Eosinophils # (Auto) 0.2 Basophils # (Auto) 0.1 CBC Comment DIFF FINAL Differential Comment Prothrombin Time 12.7 Prothromb Time International Ratio 1.3 Activated Partial Thromboplast Time 28.8 Blood Urea Nitrogen 15 Creatinine 0.74 Random Glucose 170 Total Protein 6.4 Albumin 3.3 Calcium Level 8.6 Alkaline Phosphatase 162 Aspartate Amino Transf (AST/SGOT) 12 Alanine Aminotransferase (ALT/SGPT) 12 Total Bilirubin 0.9 Sodium Level 142 Potassium Level 4.4 Chloride Level 111 Carbon Dioxide Level 24.1 Anion Gap 7 Estimat Glomerular Filtration Rate 105 Ammonia 110 Lipase 192 Result Diagram: 01/29/18 1000 01/29/18 0640 Imaging Last Impressions Abdomen/Pelvis CT 01/29/18 0656 Signed Impressions: CONCLUSION: 1. Mild infiltrate in the posterior right lower lung. Chronic bilateral inters titial lung changes. 2. Status post coiling of several varices in the region of the splenic hilum. 3. Splenomegaly. 4. Diverticulosis of the descending and sigmoid colon without inflammatory nicole nges. 5. Stable mild thickening involving the posterior wall of urinary bladder. 6. Stable small umbilical hernia containing mesenteric fat. Chest X-Ray 01/29/18 0000 Signed Impressions: CONCLUSION: No acute intrathoracic disease. Caprini VTE Risk Assessment Caprini VTE Risk Assessment: Mod/High Risk (score >= 2) Caprini Risk Assessment Model Point Value = 1 Point Value = 2 Point Value = 3 Point Value = 5 Age 41-60 Minor surgery BMI > 25 kg/m2 Swollen legs Varicose veins or History of unexplained or recurrent spontaneous Oral contraceptives or hormone replacement Sepsis (< 1 month) Serious lung disease, including pneumonia (< 1 month) Abnormal pulmonary function Acute myocardial infarction Congestive heart failure (< 1 month) History of inflammatory bowel disease Medical patient at bed rest Age 61-74 Arthroscopic surgery Major open surgery (> 45 min) Laparoscopic surgery (> 45 min) Malignancy Confined to bed (> 72 hours) Immobilizing plaster cast Central venous access Age >= 75 History of VTE Family history of VTE Factor V Leiden Prothrombin [id number] Lupus anticoagulant Anticardiolipin antibodies Elevated serum homocysteine Heparin-induced thrombocytopenia Other congenital or acquired thrombophilia Stroke (< 1 month) Elective arthroplasty Hip, pelvis, or leg fracture Acute spinal cord injury (< 1 month) Prophylaxis Regimen Total Risk Factor Score Risk Level Prophylaxis Regimen 0-1 Low Early ambulation 2 Moderate Order ONE of the following: *Sequential Compression Device (SCD) *Heparin 5000 units SQ BID 3-4 Higher Order ONE of the following medications: *Heparin 5000 units SQ TID *Enoxaparin/Lovenox 40 mg SQ daily (WT < 150 kg, CrCl > 30 mL/min) *Enoxaparin/Lovenox 30 mg SQ daily (WT < 150 kg, CrCl > 10-29 mL/min) *Enoxaparin/Lovenox 30 mg SQ BID (WT < 150 kg, CrCl > 30 mL/min) AND/OR *Sequential Compression Device (SCD) 5 or more Highest Order ONE of the following medications: *Heparin 5000 units SQ TID (Preferred with Epidurals) *Enoxaparin/Lovenox 40 mg SQ daily (WT < 150 kg, CrCl > 30 mL/min) *Enoxaparin/Lovenox 30 mg SQ daily (WT < 150 kg, CrCl > 10-29 mL/min) *Enoxaparin/Lovenox 30 mg SQ BID (WT < 150 kg, CrCl > 30 mL/min) AND *Sequential Compression Device (SCD) Assessment and Plan Assessment and Plan Hematemesis x 2 that began at 4 am. H/o gastric varices Cirrhosis with history of ETOH abuse, IV drug use, and history of Hepatitis C S/ P successful treatment with Harvoni. Abdominal distention Splenomegaly Diverticulosis of the descending and sigmoid colon without inflammatory changes Hyperammonemia- ammonia-110 however pt is asymptomatic H/p hematemesis from bleeding gastric varices that required percutaneous embolization in Jun 2017. Currently followed by GI Dr. Reich in [place]. Was seen at Sent to [facility] for possible liver transplant, however, pt declined work up at this facility [facility]. Patient was previously on Inderal but this made him feel dizzy CT abdomen and pelvis with IV contrast (01/29) Status post coiling of several varices in the region of the splenic hilum. Diverticulosis of the descending and sigmoid colon without inflammatory changes. Stable mild thickening involving the posterior wall of urinary bladder. Stable small umbilical hernia containing mesenteric fat. Last colonoscopy in 2014 revealed peridiverticulitis, internal and external hemorrhoids. Started on octreotide and pantoprazole drip Plan for EGD today Keep NPO Monitor H/H. so far stabel hgb on admission. Check tonight. Transfuse if symptomatic or if HGB< 7 Lactulose Resume home meds as appropriate DVT prophylaxis SCDs/teds. Chemical prophylaxis contraindicated at this time due to active bleeding Discussed Condition With Discussed with the patient, nurse, ED physician Kira Joseph MD Jan 29, 2018 14:59
[2018-01-29] MEDS: SODIUM CHLORIDE 0.9% FLUSH 10 ML FLUSH IV FLUSH SCH (20:07)
[2018-01-29] MEDS: DOCUSATE SODIUM 50 MG/SENNA 8.6 MG TAB PO SCH (20:08)
[2018-01-29 20:31] LABS: AUTOMATED NEUTROPHIL # 9.5 TH/MM3 (1.8-7.7); BASOPHIL # 0.1 TH/MM3 (0-0.2); BASOPHIL % 0.5 % (0.0-2.0); EOSINOPHIL # 0.1 TH/MM3 (0-0.4); HEMATOCRIT 32.2 % (39.0-51.0); HEMOGLOBIN 10.8 GM/DL (13.0-17.0); LYMPH % 7.1 % (9.0-44.0); LYMPHOCYTE # 0.8 TH/MM3 (1.0-4.8); MEAN CELL VOLUME 94.4 FL (80.0-100.0); MEAN CORPUSCULAR HEMOGLOBIN 31.6 PG (27.0-34.0); MEAN CORPUSCULAR HGB CONC 33.5 % (32.0-36.0); MEAN PLATELET VOLUME 8.4 FL (7.0-11.0); MONO % 6.2 % (0.0-8.0); MONOCYTE # 0.7 TH/MM3 (0-0.9); NEUT % 85.2 % (16.0-70.0); PLATELET COUNT 107 TH/MM3 (150-450); RED BLOOD COUNT 3.41 MIL/MM3 (4.50-5.90); RED CELL DISTRIBUTION WIDTH 15.4 % (11.6-17.2); WHITE BLOOD COUNT 11.2 TH/MM3 (4.0-11.0)
[2018-01-29] MEDS ORDERED: SODIUM CHLORID 0.9% 500 ML IV PRN (23:15)
[2018-01-29] MEDS ORDERED: CHLORHEXIDINE GLUCONATE 2 % 1 PACK (2 CLOTHS) TOPICAL PRN (23:15)
[2018-01-29] MEDS ORDERED: LACTATED RINGER'S 1000 ML IV PRN (23:15)
[2018-01-29] MEDS ORDERED: POVIDONE IODINE 5% (ANTISEPSIS KIT) 4 APPLICATIONS EACH NARE PRN (23:15)
[2018-01-30] VITALS (9 sets, daily range): BP systolic 126–160; BP diastolic 63–74; PULSE 61–86; RESP 15–18; TEMP 97.8–98.8; O2SAT 95–98
[2018-01-30] MEDS: PANTOPRAZOLE INJ 80 MG in SODIUM CHLORIDE 0.9% INJ 100 ML IV SCH ×3 (02:20→23:28)
[2018-01-30] MEDS: OCTREOTIDE INJ 500 MCG in SODIUM CHLORID 0.9% 500 ML INJ 499.5 ML IV SCH ×3 (02:21→23:28)
[2018-01-30] MEDS: SODIUM CHLOR 0.9% 1000 ML INJ 1,000 ML IV SCH ×2 (05:05→18:38)
[2018-01-30 06:20] LABS: AUTOMATED NEUTROPHIL # 4.4 TH/MM3 (1.8-7.7); BASOPHIL % 0.7 % (0.0-2.0); EOSINOPHIL # 0.2 TH/MM3 (0-0.4); HEMATOCRIT 29.1 % (39.0-51.0); LYMPH % 15.1 % (9.0-44.0); LYMPHOCYTE # 0.9 TH/MM3 (1.0-4.8); MEAN CELL VOLUME 94.2 FL (80.0-100.0); MEAN CORPUSCULAR HEMOGLOBIN 32.4 PG (27.0-34.0); MEAN CORPUSCULAR HGB CONC 34.4 % (32.0-36.0); MEAN PLATELET VOLUME 8.4 FL (7.0-11.0); MONO % 7.9 % (0.0-8.0); MONOCYTE # 0.5 TH/MM3 (0-0.9); NEUT % 73.3 % (16.0-70.0); PLATELET COUNT 102 TH/MM3 (150-450); RED BLOOD COUNT 3.09 MIL/MM3 (4.50-5.90); RED CELL DISTRIBUTION WIDTH 15.4 % (11.6-17.2); WHITE BLOOD COUNT 6.1 TH/MM3 (4.0-11.0)
[2018-01-30 06:42] LABS: BICARBONATE 22.6 MEQ/L (21.0-32.0); CALCIUM 8.3 MG/DL (8.5-10.1); CREATININE 0.76 MG/DL (0.60-1.30)
[2018-01-30] MEDS: SODIUM CHLORIDE 0.9% FLUSH 10 ML FLUSH IV FLUSH SCH ×2 (09:00→20:05)
[2018-01-30] MEDS: LACTULOSE SYRUP 20 GM/30 ML CUP PO SCH (09:00)
[2018-01-30] MEDS: DOCUSATE SODIUM 50 MG/SENNA 8.6 MG TAB PO SCH ×2 (09:00→20:05)
[2018-01-30] MEDS ORDERED: LIDOCAINE HCL 1% PF 5 ML SYRINGE OTHER ONE (12:00)
[2018-01-30] MEDS ORDERED: PROPOFOL 200 MG/20 ML AMP IV ONE (12:00)
--- NOTE | 2018-01-30 12:00 | GIPROC ---
[facility] [address] [facility]. [facility], [address] EGD PROCEDURE REPORT EXAM DATE: 01/30/2018 PATIENT NAME: Marco Mckeon MR #: [id number] BIRTHDATE: 1950 ATTENDING: Danielle Gomez MD ORDER #: [id number] EXPLOSIVES WORKER: Danay Lucas and Nancy Austin STATUS: inpatient INDICATIONS: The patient is a 67 yr old male here for an EGD due to cirrhosis , gi gleeding history of gastric varices PROCEDURE PERFORMED: EGD, diagnostic MEDICATIONS: None and Per Anesthesia. TOPICAL ANESTHETIC: none CONSENT: The patient understands the risks and benefits of the procedure and understands that these risks include, but are not limited to: sedation, allergic reaction, infection, perforation and/or bleeding. Alternative means of evaluation and treatment include, among others: physical exam, x-rays, and/or surgical intervention. The patient elects to proceed with this endoscopic procedure. medical equipment was checked for proper function. Hand hygiene and appropriate measures for infection prevention was taken. After the risks, benefits and alternatives of the procedure were thoroughly explained, Informed consent was verified, confirmed and timeout was successfully executed by the treatment team. The patient was anesthetized with topical anesthesia and the Pentax EG-[id number] endoscope was introduced through the mouth and advanced to the second portion of the duodenum. Retroflexed views revealed varices The gastroscope was then slowly withdrawn and removed. Portal gastropathy esophagitis gastric varices. ADVERSE EVENTS: There were no complications. IMPRESSIONS: 1. Portal gastropathy esophagitis gastric varices 2. Retroflexed views revealed varices RECOMMENDATIONS: 1. Anti-reflux regimen 2. Continue PPI 3. Avoid NSAIDS 4. Clear liquid diet consult IR to determine if any aditional intervention needed PATIENT CONDITION: stable DISPOSITION: Inpatient REPEAT EXAM: Return 3 months EGD Danielle Gomez MD eSigned: Danielle Gomez MD 01/30/2018 12:00 PM cc: PATIENT NAME: Marco Mckeon MR#: [id number]
--- NOTE | 2018-01-30 13:52 | EKG ---
Date Performed: 01/30/2018 Time Performed: 05:24:02 PTAGE: 67 years EKG: Sinus rhythm MODERATE ST DEPRESSION ABNORMAL ECG PREVIOUS TRACING : 11/07/2017 09.26 DOCTOR: Dawood Grant Interpretating Date/Time 01/30/2018 13:49:32
[2018-01-30] MEDS ORDERED: ACETAMINOPHEN 500 MG CPLT PO ONE (14:30)
--- NOTE | 2018-01-30 15:09 | HHI.PR ---
Subjective Remarks RN denies any deterioration since last night. Pt denies any further vomiting. feels better overall. Objective Vital Signs Date Time Temp Pulse Resp B/P (MAP) Pulse Ox O2 Delivery O2 Flow Rate FiO2 01/30/18 12:30 98.7 69 17 159/72 (101) 96 01/30/18 12:11 69 18 133/73 (93) 97 01/30/18 11:58 97.8 65 18 136/70 (92) 96 01/30/18 11:17 97.8 76 18 126/69 (88) 98 01/30/18 08:04 98.8 74 15 142/68 (92) 97 01/30/18 03:08 98.7 82 17 160/74 (102) 97 01/30/18 00:00 98.4 86 17 129/63 (85) 97 01/29/18 21:19 98 01/29/18 19:57 98.5 90 16 138/61 (86) 97 01/29/18 16:55 98.0 66 18 132/65 (87) 95 I/O 01/29/18 01/29/18 01/29/18 01/30/18 01/30/18 01/30/18 07:00 15:00 23:00 07:00 15:00 23:00 Intake Total 410 ml 200 ml Output Total 250 ml Balance 160 ml 200 ml Intake IV Total 410 ml Other 200 ml Output Emesis 250 ml # Voids 2 Result Diagram: 01/30/18 0545 01/30/18 0554 Objective Remarks unlabored breathing, CTA x 2 slightly pale A/P Assessment and Plan Hematemesis - stabilized at this time, portal gastropathy and gastric varices. Status post EGD. Monitor inpatient and for any further melena or hematemesis. Discussed with GI, IR consult for possible TIP S procedure Cirrhosis with history of ETOH abuse, IV drug use, and history of Hepatitis C S/ P successful treatment with Harvoni. Splenomegaly Diverticulosis of the descending and sigmoid colon without inflammatory changes Hyperammonemia- ammonia-asymptomatic -octreotide and pantoprazole drip Status post EGD Lactulose DM - LDSS a/ accuchecks no lovenox given bleeding risk, on scds Jonnie Roman MD Jan 30, 2018 15:09
[2018-01-30] MEDS ORDERED: GLUCAGON 1 MG/ML VIAL OTHER PRN (15:15)
[2018-01-30] MEDS ORDERED: DEXTROSE 50% IN WATER 50 ML VIAL(D50) IV PUSH PRN (15:15)
[2018-01-30] MEDS: INSULIN NovoLIN REGULAR SUPPLEMENTAL SCALE SQ SCH ×2 (17:00→20:05)
[2018-01-30] MEDS: VITAMIN E 400 UNIT CAP PO SCH (18:37)
[2018-01-30] MEDS: CHOLECALCIFEROL (VIT D3) 1000 UNIT TAB PO SCH (18:37)
[2018-01-31 04:03] VITALS: BP 158/70; PULSE 71; RESP 17; TEMP 98.6; O2SAT 95
[2018-01-31] MEDS: SODIUM CHLOR 0.9% 1000 ML INJ 1,000 ML IV SCH ×3 (04:42→23:58)
[2018-01-31 07:36] VITALS: BP 144/71; PULSE 64; RESP 20; TEMP 98.5; O2SAT 96
[2018-01-31 07:41] LABS: HEMATOCRIT 27.6 % (39.0-51.0); HEMOGLOBIN 9.7 GM/DL (13.0-17.0); MEAN CELL VOLUME 93.1 FL (80.0-100.0); MEAN CORPUSCULAR HEMOGLOBIN 32.6 PG (27.0-34.0); MEAN PLATELET VOLUME 8.3 FL (7.0-11.0); PLATELET COUNT 111 TH/MM3 (150-450); RED BLOOD COUNT 2.97 MIL/MM3 (4.50-5.90); RED CELL DISTRIBUTION WIDTH 15.1 % (11.6-17.2); WHITE BLOOD COUNT 7.6 TH/MM3 (4.0-11.0)
[2018-01-31] MEDS: INSULIN NovoLIN REGULAR SUPPLEMENTAL SCALE SQ SCH ×4 (08:00→21:00)
[2018-01-31] MEDS: OCTREOTIDE INJ 500 MCG in SODIUM CHLORID 0.9% 500 ML INJ 499.5 ML IV SCH (08:14)
[2018-01-31] MEDS: PANTOPRAZOLE INJ 80 MG in SODIUM CHLORIDE 0.9% INJ 100 ML IV SCH (08:14)
[2018-01-31] MEDS: SODIUM CHLORIDE 0.9% FLUSH 10 ML FLUSH IV FLUSH SCH ×2 (09:00→21:00)
[2018-01-31] MEDS: DOCUSATE SODIUM 50 MG/SENNA 8.6 MG TAB PO SCH ×2 (09:00→21:12)
[2018-01-31] MEDS ORDERED: ceFAZolin 2 GM PREMIX 50 ML ONE (09:36)
[2018-01-31] MEDS ORDERED: SODIUM CHLOR 0.9% 250 ML INJ 250 ML ONE (10:33)
[2018-01-31] MEDS ORDERED: ePHEDrine/NS 25 MG/5 ML SYRINGE IV ONE (12:00)
[2018-01-31] MEDS ORDERED: PHENYLEPHRINE HCL 10 MG/ML VIAL IV ONE (12:00)
[2018-01-31] MEDS ORDERED: GLYCOPYRROLATE 1 MG/5 ML SYRINGE IV PUSH ONE (12:00)
[2018-01-31] MEDS ORDERED: ONDANSETRON HCL 4 MG/2 ML VIAL IV ONE (12:00)
[2018-01-31] MEDS ORDERED: LIDOCAINE HCL 1% PF 5 ML SYRINGE OTHER ONE (12:00)
[2018-01-31] MEDS ORDERED: PHENYLEPH/NS 1000 MCG/10 ML SYR IV ONE (12:00)
[2018-01-31] MEDS ORDERED: ROCURONIUM INJ 50 MG/5 ML SYRINGE IV PUSH ONE (12:00)
[2018-01-31] MEDS ORDERED: PROPOFOL 200 MG/20 ML AMP IV ONE (12:00)
[2018-01-31] MEDS ORDERED: NEOSTIGMINE 5 MG/5 ML SYRINGE IV PUSH ONE (12:00)
[2018-01-31] MEDS ORDERED: DO NOT ADM ANY ANTICOAGULANT DRUGS PRN (13:05)
[2018-01-31] MEDS ORDERED: MIDAZOLAM HCL 2 MG/2 ML VIAL ONE (13:17)
--- NOTE | 2018-01-31 13:46 | PD.RAD ---
Post Procedure Progress Note Pre Procedure Diagnosis: (1) Gastric varices (2) Upper GI bleed Post Procedure Diagnosis: (1) Gastric varices (2) Upper GI bleed Procedure Date: Jan 31, 2018 Supervising Radiologist: Atif Archer Proceduralist/Assist: Dioni Waterman, RT(R), Lorraine Quigley RT(R)(CV) Anesthesia: Conscious Sedation Plan of Activity Patient to Unit: ROPU Patient Condition: Good See PACS Report for procedural detail/treatment Atif Archer MD Jan 31, 2018 13:46
[2018-01-31] MEDS ORDERED: *morphine SULFATE 4 MG/ML PERIprocedure ONLY ONE ×2 (13:59→14:10)
[2018-01-31] MEDS ORDERED: HYDROmorphone HCL PF 2 MG/ML VIAL ONE (14:21)
[2018-01-31 14:25] LABS: HEMATOCRIT 27.5 % (39.0-51.0); HEMOGLOBIN 9.5 GM/DL (13.0-17.0)
--- NOTE | 2018-01-31 15:06 | HHI.PR ---
Subjective Remarks PACU nurse reports no deteriorations. Patient is currently status post TIPS procedure. Patient did have some substantial pain after the procedure requiring morphine and Dilaudid. Objective Vital Signs Date Time Temp Pulse Resp B/P (MAP) Pulse Ox O2 Delivery O2 Flow Rate FiO2 01/31/18 14:30 97.2 66 15 128/63 (84) 96 01/31/18 14:30 Nasal Cannula 2 01/31/18 14:15 61 16 126/62 (83) 97 01/31/18 14:00 61 12 130/67 (88) 96 01/31/18 13:45 59 14 127/69 (88) 96 01/31/18 13:30 60 14 128/65 (86) 96 01/31/18 13:15 61 12 138/64 (88) 95 01/31/18 13:06 98.0 64 10 146/70 (95) 95 Nasal Cannula 2 01/31/18 07:36 98.5 64 20 144/71 (95) 96 01/31/18 04:03 98.6 71 17 158/70 (99) 95 01/30/18 23:36 98.3 61 17 155/72 (99) 95 01/30/18 19:49 98 21 01/30/18 19:36 98.5 70 16 159/72 (101) 98 01/30/18 15:23 98.5 65 18 149/70 (96) 96 I/O 01/30/18 01/30/18 01/30/18 01/31/18 01/31/18 01/31/18 07:00 15:00 23:00 07:00 15:00 23:00 Intake Total 200 ml 780 ml 1200 ml Output Total 2100 ml 0 ml Balance 200 ml -1320 ml 1200 ml Intake Oral 780 ml IV Total 1200 ml Other 200 ml Output Urine Total 2100 ml Estimated Blood Loss 0 ml Result Diagram: 01/31/18 1402 01/30/18 0554 Objective Remarks unlabored breathing, CTA x 2 slightly pale Gauze placed over neck insertion site for TIPS procedure A/P Assessment and Plan Hematemesis - stabilized at this time, portal gastropathy and gastric varices. Status post EGD. Monitor inpatient and for any further melena or hematemesis. -Status post TIPS procedure, discussed with interventional radiology, will keep in-house today, trend ammonia levels Cirrhosis with history of ETOH abuse, IV drug use, and history of Hepatitis C S/ P successful treatment with Harvoni. Splenomegaly Diverticulosis of the descending and sigmoid colon without inflammatory changes Hyperammonemia- ammonia-asymptomatic -octreotide and pantoprazole drip Status post EGD Lactulose DM - LDSS a/ accuchecks no lovenox given bleeding risk, on scds Jonnie Roman MD Jan 31, 2018 15:06
[2018-01-31 16:00] VITALS: BP 127/58; PULSE 65; RESP 12; TEMP 98; O2SAT 94
--- NOTE | 2018-01-31 17:01 | HHI.GIFU ---
Subjective Remarks Pt resting in bed Drowsy, just returned from TIPS procedure Denies nausea and vomiting No BM since admission Mild upper abdominal pain (Stefani Eaton) Objective Vitals I&O Vital Signs Date Time Temp Pulse Resp B/P (MAP) Pulse Ox O2 Delivery O2 Flow Rate FiO2 01/31/18 16:00 98.0 65 12 127/58 (81) 94 01/31/18 14:30 97.2 66 15 128/63 (84) 96 01/31/18 14:30 Nasal Cannula 2 01/31/18 14:15 61 16 126/62 (83) 97 01/31/18 14:00 61 12 130/67 (88) 96 01/31/18 13:45 59 14 127/69 (88) 96 01/31/18 13:30 60 14 128/65 (86) 96 01/31/18 13:15 61 12 138/64 (88) 95 01/31/18 13:06 98.0 64 10 146/70 (95) 95 Nasal Cannula 2 01/31/18 07:36 98.5 64 20 144/71 (95) 96 01/31/18 04:03 98.6 71 17 158/70 (99) 95 01/30/18 23:36 98.3 61 17 155/72 (99) 95 01/30/18 19:49 98 21 01/30/18 19:36 98.5 70 16 159/72 (101) 98 I/O 01/30/18 01/30/18 01/30/18 01/31/18 01/31/18 01/31/18 07:00 15:00 23:00 07:00 15:00 23:00 Intake Total 200 ml 780 ml 1200 ml Output Total 2100 ml 0 ml Balance 200 ml -1320 ml 1200 ml Intake Oral 780 ml IV Total 1200 ml Other 200 ml Output Urine Total 2100 ml Estimated Blood Loss 0 ml Laboratory Laboratory Tests Test 01/31/18 06:52 01/31/18 14:02 White Blood Count 7.6 Red Blood Count 2.97 Hemoglobin 9.7 9.5 Hematocrit 27.6 27.5 Mean Corpuscular Volume 93.1 Mean Corpuscular Hemoglobin 32.6 Mean Corpuscular Hemoglobin Concent 35.0 Red Cell Distribution Width 15.1 Platelet Count 111 Mean Platelet Volume 8.3 Ammonia 59 Imaging Last Impressions Abdomen/Pelvis CT 01/29/18 0656 Signed Impressions: CONCLUSION: 1. Mild infiltrate in the posterior right lower lung. Chronic bilateral inters titial lung changes. 2. Status post coiling of several varices in the region of the splenic hilum. 3. Splenomegaly. 4. Diverticulosis of the descending and sigmoid colon without inflammatory nicole nges. 5. Stable mild thickening involving the posterior wall of urinary bladder. 6. Stable small umbilical hernia containing mesenteric fat. Chest X-Ray 01/29/18 0000 Signed Impressions: CONCLUSION: No acute intrathoracic disease. Physical Exam HEENT: Normocephalic; atraumatic CHEST: Even/unlabored CARDIAC: RRR ABDOMEN: Soft, nondistended, upper abdominal tenderness, bowel sounds active EXTREMITIES: No clubbing, cyanosis, or edema. SKIN: Normal; no rash; no jaundice. 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 (Stefani Eaton) Assessment and Plan Plan Assessment: - Hematemesis x 2 that began at 4 am- denies any associated abdominal pain or changes in stool Cirrhosis with history of ETOH abuse, IV drug use, and history of Hepatitis C S/P successful treatment with Harvoni. Previous hematemesis from bleeding gastric varices that required percutaneous embolization in Jun 2017. Pt has had follow up EGD since then, last one in October 2017 at same time he had EUS for fundic nodule -->Esophageal and gastric varices, portal gastropathy. Not currently on any medication for his liver. Currently followed by GI Dr. Reich in [place]. Was seen at [facility] for possible liver transplant, however, pt declined work up at this facility [facility]. Of note, according to office records pt was previously on Inderal but this made him feel dizzy - Abdominal swelling- pt has noticed some swelling in his abdomen. Denies previous paracentesis. Not on any diuretics. CT abdomen and pelvis W IV contrast (01/29) Status post coiling of several varices in the region of the splenic hilum. Splenomegaly. Diverticulosis of the descending and sigmoid colon without inflammatory changes. Stable mild thickening involving the posterior wall of urinary bladder. Stable small umbilical hernia containing mesenteric fat. Last colonoscopy in 2014 revealed pandiverticulosis, internal and external hemorrhoids. - Hyperammonemia- ammonia-110 however pt is asymptomatic (01/31) S/P EGD and TIPS procedure. EGD --> Portal gastropathy. Esophagitis. Gastric varices. H/H stable. No nausea or emesis since EGD. No BM since arrival. Ammonia improving, now 59. Plan: Monitor H/H Lactulose Protonix Monitor ammonia Lactulose Pt wants to have work up through [place] for liver transplant Further recommendations based on clinical course and results of above Pt has been seen and examined by myself and Dr. Gomez and this note is written on her behalf (Stefani Eaton) Physician Comments seen, examined agree with above (Danielle Gomez MD) Stefani Eaton Jan 31, 2018 17:01 Danielle Gomez MD Jan 31, 2018 18:36
[2018-01-31] MEDS: CHOLECALCIFEROL (VIT D3) 1000 UNIT TAB PO SCH (17:22)
[2018-01-31] MEDS: VITAMIN E 400 UNIT CAP PO SCH (17:22)
[2018-01-31] MEDS: LACTULOSE SYRUP 20 GM/30 ML CUP PO SCH (17:22)
[2018-01-31 20:21] VITALS: BP 115/55; PULSE 62; RESP 16; TEMP 98.1; O2SAT 94
[2018-01-31] MEDS: PANTOPRAZOLE SOD 40 MG DELAYED RELEASE TAB PO SCH (21:12)
[2018-01-31 22:52] VITALS: BP 129/60; PULSE 66; RESP 16; TEMP 98.1; O2SAT 95
[2018-02-01 03:28] VITALS: BP 117/58; PULSE 66; RESP 16; TEMP 98.7; O2SAT 91
[2018-02-01 07:21] LABS: HEMATOCRIT 26.4 % (39.0-51.0); HEMOGLOBIN 9.3 GM/DL (13.0-17.0); MEAN CELL VOLUME 91.7 FL (80.0-100.0); MEAN CORPUSCULAR HEMOGLOBIN 32.3 PG (27.0-34.0); MEAN CORPUSCULAR HGB CONC 35.2 % (32.0-36.0); MEAN PLATELET VOLUME 7.7 FL (7.0-11.0); PLATELET COUNT 130 TH/MM3 (150-450); RED BLOOD COUNT 2.88 MIL/MM3 (4.50-5.90); RED CELL DISTRIBUTION WIDTH 15.5 % (11.6-17.2); WHITE BLOOD COUNT 10.6 TH/MM3 (4.0-11.0)
--- NOTE | 2018-02-01 08:03 | RADRPT ---
EXAM DATE: 01/31/2018 3:00 PM EDT AGE/SEX: 67 years / Male INDICATIONS: 67-year-old male with history of cirrhosis with recurrent gastric variceal hemorrhage. Patient is status post: Position gastric varices in June. Recent CT exam demonstrates prominent r ecurrent gastric varices. Patient has no history of encephalopathy with Na-MELD score of 9. CT exam d emonstrates no evidence for hepatic mass. CLINICAL DATA: This is the patient's subsequent encounter. Patient reports that signs and symptoms h ave been present for 7 - 11 months and indicates a pain score of 0/10. MEDICAL/SURGICAL HISTORY: . Cirrhosis with portal hypertension, Esophageal varices, and gastric varicesHistory of hepatitis C HyperlipidemiaAnemiaGERDBPH . EUSEGDColonoscopyPercutaneous embolizat ion of gastric varices CholecystectomyLiver biopsyRotators cuff repeatVenous thrombectomy COMPARISON: No prior exams available for comparison. FLUORO TIME (min): 43.8 IMAGE SERIES: 30 ACCESS SITE: Right internal jugular vein CONTRAST (cc): 85 cc Omnipaque (iohexol) 350 Anesthesia and pain control was provided by the Anesthesia department. DEVICE(S): Right Portal vein stent (self expanding) 10mm x 60mm Right Portal vein stent (self expanding) 10mm x 40mm Right Portal vein embolic coil(s) 15mm x 40cm Right Portal vein embolic coil(s) 15mm x 25cm (x2) Right Portal vein embolic coil(s) 12mm x 40cm Right Portal vein DUMP MOTORMAN balloon 8/60 75, 8/80 135, 10/60 75 Right Portal vein DUMP MOTORMAN balloon 4/40 135, 5/40 75 . . PROCEDURE : 1. Ultrasound-guided puncture of the access site. 2. Right atrial pre-TIPS pressure measurements 3. Placement of transjugular intrahepatic portosystemic shunt (TIPS) 4. Right hepatic vein and portal venography 5. Right atrial and portal post TIPS pressure measurements 6. Coil embolization of large dominant gastric varix The risks, benefits and alternatives to the procedure were explained and verbal and written consent w as obtained. The site was prepped in sterile fashion. Full sterile technique was used, including ca p, mask, sterile gloves and gown and a large sterile sheet. Hand hygiene and 2% chlorhexidine and/or betadine/alcohol prep was utilized per protocol for cutaneous antisepsis. Sterile gel and sterile p robe cover were utilized for ultrasound guidance. The skin and subcutaneous tissues were infiltrated with local anesthetic solution. Ultrasound evaluation of the right internal jugular vein demonstrated a patent internal jugular vein. Single image was obtained and placed in PACS archive. A 21-gauge micropuncture needle was advanced i nto the internal jugular vein under direct ultrasound guidance. This was subsequently exchanged for a 6 Monegasque sheath. Pressure measurements were then obtained through the sheath. Next, a [place] catheter was used to select the right hepatic vein and venogram was performed demonstrating patency. Sheath w as subsequently exchanged for a 10 [place]gasque sheath which was advanced into the right hepatic vein. Need le was advanced through a metal cannula and following multiple passes through right lobe of the liver the portal vein was accessed. Catheter was advanced into the portal vein and venography was performe d confirming position in the portal vein. Next, the tract was dilated with 6 x 40 mm balloon and cameron th was advanced into the portal vein. A Viatorr stent was not available for placement. Therefore, 2 o verlapping 10 x 60 mm self-expanding stents were deployed through the tract and subsequently dilated to 10 mm with 10 mm balloon. Repeat portal venogram was performed demonstrating very prominent gastri c varices with hepatofugal flow through the varices. Therefore, the dominant gastric varix was cannul ated and position confirmed. Next, multiple coils were deployed in the varix with significant decreas ed flow through the varix on follow-up sonography. There was now hepatopedal flow through the TIPS st ent. Therefore, decision was made to terminate the procedure at this time. Catheters and wires were then removed and hemostasis obtained at the puncture site with manual compre ssion. The patient tolerated the procedure well and there were no complications. FINDINGS: Right atrial mean pressure pre-TIPS placement: 1 mmHg Right atrial mean pressure Post-TIPS placement: 9 mmHg Portal vein mean pressure Post-TIPS placement: 13 mmHg Post-TIPS mean gradient: 4 mmHg Right hepatic vein and portal veins are patent. Right hepatic vein to right portal vein TIPS placemen t. Large dominant gastric varices with hepatofugal flow through the varices. Following coil embolizat ion and TIPS placement there is now hepatopedal flow through the TIPS. CONCLUSION: 1. Uncomplicated placement of TIPS stent. The right hepatic vein to the right portal vein. 2. Very large gastric varices with hepatofugal flow despite placement of TIPS. 3. Following coil embolization of the dominant gastric varix, there is now hepatopedal flow through TIPS. 4. PLAN: Baseline ultrasound examination in 2 weeks with surveillance ultrasound at 3 months, 6 ehnri hs and one year. Will consider portal venography in 3 months to reevaluate TIPS flow and revision wit h Viatorr stent. Electronically signed by: Atif Archer MD 02/01/2018 8:01 AM EDT
[2018-02-01 08:09] LABS: ALBUMIN 2.7 GM/DL (3.4-5.0); ALKALINE PHOSPHATASE 126 U/L (45-117); ALT (GPT) 26 U/L (12-78); AST (GOT) 47 U/L (15-37); BLOOD UREA NITROGEN 17 MG/DL (7-18); CALCIUM 7.7 MG/DL (8.5-10.1); CHLORIDE 112 MEQ/L (98-107); CREATININE 0.74 MG/DL (0.60-1.30); GLOMERULAR FILTRATION RATE 105 ML/MIN (>89); GLUCOSE,RANDOM 120 MG/DL (74-106); SODIUM (NA) 142 MEQ/L (136-145); TOTAL PROTEIN 5.2 GM/DL (6.4-8.2)
[2018-02-01] MEDS ORDERED: XIFA550T4 PO (08:16)
[2018-02-01] MEDS ORDERED: ZINC220T PO (08:20)
[2018-02-01] MEDS ORDERED: LACT10SO PO (08:20)
--- NOTE | 2018-02-01 08:20 | HHI.DCPOC ---
Discharge Care Plan Diagnosis: (1) Gastric varices (2) Upper GI bleed (3) Hematemesis/vomiting blood Goals to Promote Your Health * To prevent worsening of your condition and complications * To maintain your health at the optimal level Directions to Meet Your Goals Take your medications as prescribed Follow your dietary instruction Follow activity as directed Keep your appointments as scheduled Take your immunizations and boosters as scheduled If your symptoms worsen call your PCP, if no PCP go to Urgent Care Center or Emergency Room Smoking is Dangerous to Your Health. Avoid second hand smoke Call the 24-hour hour crisis hotline for domestic abuse at Jonnie Roman MD Feb 01, 2018 08:20
--- NOTE | 2018-02-01 08:21 | HHI.DS ---
Discharge Summary Admission Date Jan 29, 2018 at 09:36 Admitting Diagnosis gi bleed Brief History - From Admission This is a 67 year old M with PMH significant for cirrhosis with past complications of gastric varices, at one point requiring percutaneous embolization of the gastric varices in June 2017. Pt reports cirrhosis is from history of IV drug use and alcohol use. Last IV drug use was in 1968 and last ETOH drink was in the . Pt denies ever having paracentesis in the past. He is not currently on any medications for his liver. Reports he was seen at [facility] for possible transplant in August of this year but declined transplant at this facility and [facility]. Pt presented to the hospital this morning for complaints of hematemesis x 2, first episode at 4 am and last episode at 6 am. Denies any associated acid reflux, heartburn, abdominal pain, melena, and hematochezia. Pts last EGD/EUS was in October of this year --> Esophageal and gastric varices, portal gastropathy. Last colonoscopy in 2014 revealed pandiverticulosis, internal and external hemorrhoids. Pts current GI doctor is Dr. Reich in [place]. CBC/BMP: 02/01/18 0647 02/01/18 0647 Significant Findings Laboratory Tests Test 01/29/18 10:00 01/29/18 20:13 01/30/18 05:45 01/30/18 05:54 Hemoglobin 10.6 GM/DL (13.0-17.0) 10.8 GM/DL (13.0-17.0) 10.0 GM/DL (13.0-17.0) Hematocrit 31.1 % (39.0-51.0) 32.2 % (39.0-51.0) 29.1 % (39.0-51.0) White Blood Count 11.2 TH/MM3 (4.0-11.0) Red Blood Count 3.41 MIL/MM3 (4.50-5.90) 3.09 MIL/MM3 (4.50-5.90) Platelet Count 107 TH/MM3 (150-450) 102 TH/MM3 (150-450) Neutrophils (%) (Auto) 85.2 % (16.0-70.0) 73.3 % (16.0-70.0) Lymphocytes (%) (Auto) 7.1 % (9.0-44.0) Neutrophils # (Auto) 9.5 TH/MM3 (1.8-7.7) Lymphocytes # (Auto) 0.8 TH/MM3 (1.0-4.8) 0.9 TH/MM3 (1.0-4.8) Blood Urea Nitrogen 19 MG/DL (7-18) Random Glucose 157 MG/DL (74-106) Calcium Level 8.3 MG/DL (8.5-10.1) Sodium Level 146 MEQ/L (136-145) Chloride Level 114 MEQ/L (98-107) Test 01/31/18 06:52 01/31/18 14:02 02/01/18 06:47 Red Blood Count 2.97 MIL/MM3 (4.50-5.90) 2.88 MIL/MM3 (4.50-5.90) Hemoglobin 9.7 GM/DL (13.0-17.0) 9.5 GM/DL (13.0-17.0) 9.3 GM/DL (13.0-17.0) Hematocrit 27.6 % (39.0-51.0) 27.5 % (39.0-51.0) 26.4 % (39.0-51.0) Platelet Count 111 TH/MM3 (150-450) 130 TH/MM3 (150-450) Ammonia 59 MCMOL/L (11-32) Random Glucose 120 MG/DL (74-106) Total Protein 5.2 GM/DL (6.4-8.2) Albumin 2.7 GM/DL (3.4-5.0) Calcium Level 7.7 MG/DL (8.5-10.1) Alkaline Phosphatase 126 U/L (45-117) Aspartate Amino Transf (AST/SGOT) 47 U/L (15-37) Chloride Level 112 MEQ/L (98-107) Pt Condition on Discharge: Stable Discharge Disposition: Discharge Home Discharge Instructions DIET: Follow Instructions for: High Protein Diet, Liver Disease Diet Activities you can perform: Weight Bearing as Jonnie Garrido MD Feb 01, 2018 08:21
[2018-02-01] MEDS: SODIUM CHLOR 0.9% 1000 ML INJ 1,000 ML IV SCH (08:42)
[2018-02-01] MEDS: DOCUSATE SODIUM 50 MG/SENNA 8.6 MG TAB PO SCH (08:43)
[2018-02-01] MEDS: LACTULOSE SYRUP 20 GM/30 ML CUP PO SCH (08:43)
[2018-02-01] MEDS: VITAMIN E 400 UNIT CAP PO SCH (08:44)
[2018-02-01] MEDS: PANTOPRAZOLE SOD 40 MG DELAYED RELEASE TAB PO SCH (08:45)
[2018-02-01] MEDS: INSULIN NovoLIN REGULAR SUPPLEMENTAL SCALE SQ SCH (08:45)
[2018-02-01] MEDS: CHOLECALCIFEROL (VIT D3) 1000 UNIT TAB PO SCH (08:45)
[2018-02-01] MEDS: SODIUM CHLORIDE 0.9% FLUSH 10 ML FLUSH IV FLUSH SCH (08:46)
[2018-02-01 08:57] VITALS: BP 125/64; PULSE 69; RESP 18; TEMP 98.2; O2SAT 100
[2018-02-01] MEDS ORDERED: RIFAXIMIN 550 MG TAB PO SCH (09:00)
--- NOTE | 2018-02-01 12:31 | HHI.GIFU ---
Subjective Remarks Patient is resting in the bed with IV fluids infusing at 100 cc an hour Denies any melena or GI bleeding within the past 24 hours Currently wearing oxygen but to cough for trial basis. No obvious shortness of breath Abdomen round soft , minimal mild generalized soreness (Chandrika Allen) Objective Vitals I&O Vital Signs Date Time Temp Pulse Resp B/P (MAP) Pulse Ox O2 Delivery O2 Flow Rate FiO2 02/01/18 08:57 98.2 69 18 125/64 (84) 100 02/01/18 06:00 Nasal Cannula 2.00 02/01/18 03:28 98.7 66 16 117/58 (77) 91 01/31/18 22:52 98.1 66 16 129/60 (83) 95 01/31/18 20:21 98.1 62 16 115/55 (75) 94 01/31/18 16:00 98.0 65 12 127/58 (81) 94 01/31/18 14:30 97.2 66 15 128/63 (84) 96 01/31/18 14:30 Nasal Cannula 2 01/31/18 14:15 61 16 126/62 (83) 97 01/31/18 14:00 61 12 130/67 (88) 96 01/31/18 13:45 59 14 127/69 (88) 96 01/31/18 13:30 60 14 128/65 (86) 96 01/31/18 13:15 61 12 138/64 (88) 95 01/31/18 13:06 98.0 64 10 146/70 (95) 95 Nasal Cannula 2 I/O 01/31/18 01/31/18 01/31/18 02/01/18 02/01/18 02/01/18 07:00 15:00 23:00 07:00 15:00 23:00 Intake Total 1200 ml 0 ml Output Total 0 ml Balance 1200 ml 0 ml Intake Oral 0 ml IV Total 1200 ml Estimated Blood Loss 0 ml # Voids 2 Laboratory Laboratory Tests Test 01/31/18 14:02 02/01/18 06:47 02/01/18 09:04 Hemoglobin 9.5 9.3 Hematocrit 27.5 26.4 Ammonia 59 49 White Blood Count 10.6 Red Blood Count 2.88 Mean Corpuscular Volume 91.7 Mean Corpuscular Hemoglobin 32.3 Mean Corpuscular Hemoglobin Concent 35.2 Red Cell Distribution Width 15.5 Platelet Count 130 Mean Platelet Volume 7.7 Blood Urea Nitrogen 17 Creatinine 0.74 Random Glucose 120 Total Protein 5.2 Albumin 2.7 Calcium Level 7.7 Alkaline Phosphatase 126 Aspartate Amino Transf (AST/SGOT) 47 Alanine Aminotransferase (ALT/SGPT) 26 Total Bilirubin 1.0 Sodium Level 142 Potassium Level 3.8 Chloride Level 112 Carbon Dioxide Level 21.0 Anion Gap 9 Estimat Glomerular Filtration Rate 105 Imaging Last Impressions TIPS (Transven Interhept [place]) 01/31/18 0000 Signed Impressions: CONCLUSION: 1. Uncomplicated placement of TIPS stent. The right hepatic vein to the right portal vein. 2. Very large gastric varices with hepatofugal flow despite placement of TIPS. 3. Following coil embolization of the dominant gastric varix, there is now hep atopedal flow through TIPS. 4. PLAN: Baseline ultrasound examination in 2 weeks with surveillance ultrasou nd at 3 months, 6 months and one year. Will consider portal venography in 3 mon ths to reevaluate TIPS flow and revision with Viatorr stent. Abdomen/Pelvis CT 01/29/18 0656 Signed Impressions: CONCLUSION: 1. Mild infiltrate in the posterior right lower lung. Chronic bilateral inters titial lung changes. 2. Status post coiling of several varices in the region of the splenic hilum. 3. Splenomegaly. 4. Diverticulosis of the descending and sigmoid colon without inflammatory nicole nges. 5. Stable mild thickening involving the posterior wall of urinary bladder. 6. Stable small umbilical hernia containing mesenteric fat. Chest X-Ray 01/29/18 0000 Signed Impressions: CONCLUSION: No acute intrathoracic disease. Physical Exam HEENT: Normocephalic; atraumatic, speech understandable CHEST: Even/unlabored, no obvious shortness of breath CARDIAC: Rate and rhythm, systolic murmur heard ABDOMEN: Round, soft, nondistended, mild minimal abdominal soreness, bowel sounds active EXTREMITIES: No clubbing, cyanosis, or edema. 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 Previous hematemesis from bleeding gastric varices that required percutaneous embolization in Jun 2017. Pt has had follow up EGD since then, last one in October 2017 at same time he had EUS for fundic nodule -->Esophageal and gastric varices, portal gastropathy. Not currently on any medication for his liver. Currently followed by GI Dr. Reich in [place]. Was seen at [facility] for possible liver transplant, however, pt declined work up at this facility and [facility]. Of note, according to office records pt was previously on Inderal but this made him feel dizzy - Abdominal swelling- pt has noticed some swelling in his abdomen. Denies previous paracentesis. Not on any diuretics. CT abdomen and pelvis W IV contrast (01/29) Status post coiling of several varices in the region of the splenic hilum. Splenomegaly. Diverticulosis of the descending and sigmoid colon without inflammatory changes. Stable mild thickening involving the posterior wall of urinary bladder. Stable small umbilical hernia containing mesenteric fat. Last colonoscopy in 2014 revealed pandiverticulosis, internal and external hemorrhoids. - Hyperammonemia- ammonia-110 however pt is asymptomatic (01/31) S/P EGD and TIPS procedure. EGD --> Portal gastropathy. Esophagitis. Gastric varices. H/H stable. No nausea or emesis since EGD. No BM since arrival. Ammonia improving, now 59. 02/01/2018. Hemoglobin 9.3, AST 47 ALT 26, alkaline phosphatase 126, ammonia level 49 with mild gradual decrease is noted. Patient continues to have IV fluids at 100 cc an hour but states that he is waiting on his breakfast and appetite present. Patient has no shortness of breath but had been wearing oxygen continuously will remove for trial basis. No obvious bleeding stated per the patient the last 24 hours. Patient is status post TIPS procedure/ stent. The right hepatic vein to the right portal vein. Very large gastric varices noted with hepato-fugal flow despite placement of tips. Mild elevated AST level probable secondary to hepatocellular disease. Noted gradual resolution of ammonia level and patient is able to answer simple questions. According to the record [facility]. Plan: Baseline ultrasound exam dated in 2 weeks with surveillance ultrasound at 3 months, 6 months, and one year. Consider portal venography in 3 months to reevaluate TIPS flow and revision of Viatorr stent Monitor H/H, and other labs, transfuse as needed Lactulose Protonix Monitor ammonia and LFTs Lactulose If okay with IR, okay for GI DC and can follow patient as needed on an outpatient basis Pt has been seen per myself and Dr. Gomez, this note is written on her behalf (Chandrika Allen) Chandrika Allen Feb 01, 2018 12:31 Danielle Gomez MD Feb 01, 2018 16:07
[2018-02-01 13:02] VITALS: BP 133/60; PULSE 71; RESP 18; TEMP 98.8; O2SAT 98
== END 2018-02-01 14:19 | disposition home or self-care (01) ==
LOC: NEPE 06:05 → NEDA 09:36 → INTOOBSV 09:36 → NEPGCP 15:04
PROVIDERS: ADMIT Hospitalist; ATTEND Hospitalist
DX: I86.4 Gastric varices (principal); K76.6 Portal hypertension; K31.89 Other diseases of stomach and duodenum; K92.0 Hematemesis; K57.30 Diverticulosis of large intestine without perforation or abscess without bleeding; K42.9 Umbilical hernia without obstruction or gangrene; I10 Essential (primary) hypertension; E11.9 Type 2 diabetes mellitus without complications; R16.1 Splenomegaly, not elsewhere classified; E78.5 Hyperlipidemia, unspecified; K21.0 Gastro-esophageal reflux disease with esophagitis; B19.20 Unspecified viral hepatitis C without hepatic coma; K72.90 Hepatic failure, unspecified without coma; K74.60 Unspecified cirrhosis of liver; R94.31 Abnormal electrocardiogram [ECG] [EKG]; F43.10 Post-traumatic stress disorder, unspecified; N40.0 Benign prostatic hyperplasia without lower urinary tract symptoms; Z87.891 Personal history of nicotine dependence; Z79.899 Other long term (current) drug therapy; Z79.84 Long term (current) use of oral hypoglycemic drugs
CPT/HCPCS: 00731; 36415; 37182; 37248; 43235; 71045; 74177; 76937; 80048; 80053; 82140; 82948; 83690; 85014; 85018; 85025; 85027; 85610; 85730; 86850; 86900; 86901; 93005; 96361; 96365; 96366; 96367; 96375; 97162; 99285; C1725; C1769; C1876; C1887; C1894; C9113; G0378; G8987; G8988; J0690; J1170; J2250; J2270; J2354; J2370; J2405; J2710; J2765; J3010; J7030; J7040; J7050; Q9967; 75891